=== PATIENT | female | born 1985 | race Caucasian/White ===

== ENCOUNTER 2021-06-20 12:13 | Inpatient (IN) | payer OTHER ==
[~2021-06-20] VITALS: Ht 165.1 cm; Wt 63.0 kg
[2021-06-20] VITALS (8 sets, daily range): BP systolic 81–94; BP diastolic 50–56
[~2021-06-20 12:13] MED LIST: ACET-907 PO; ATOR1TAB19 PO; BASA100I SC; BASA100I SQ; CARA1TAB6 PO; ESCI10TA16 PO; HUMA100I5 SQ; LEVO75TA4 PO; LISI2.5T9 PO; PANT40TA29 PO
[2021-06-20] MEDS ORDERED: NS 1,000 ML IV ONE ×5 (12:20→22:10)
[2021-06-20] MEDS ORDERED: HumuLIN R (REGULAR) INSULIN (NovoLIN R) **100U/ML** PER UNIT IV ONE (12:30)
[2021-06-20 12:35] LABS: VENOUS BASE EXCESS -29.1 (-2.0-2.0); VENOUS HCO3 3.7 MEQ/L (23.0-27.0); VENOUS O2 SATURATION 90.2 % (60.0-80.0); VENOUS PARTIAL PRESSURE CO2 21.8 mmHg (38.0-50.0); VENOUS PH 6.852 UNITS (7.330-7.430); VENOUS STANDARD HCO3 5.1 MEQ/L; VENOUS TOTAL CO2 4.4 MEQ/L (24.0-28.0)
[2021-06-20 12:53] LABS: BASO # 0.1 10^3/uL (0.0-0.2); BASO % 0.4 % (0.0-1.0); EOS % 0.1 % (0.0-3.0); HEMATOCRIT 44.6 % (36.0-47.0); HEMOGLOBIN 12.2 g/dl (12.0-15.5); LYMPH # 1.8 10^3/uL (1.5-5.0); LYMPH % 6.2 % (24.0-44.0); MEAN CORPUSCULAR HEMOGLOBIN 30.7 pg (27.0-33.0); MEAN CORPUSCULAR HGB CONC 27.4 g/dl (32.0-36.5); MEAN CORPUSCULAR VOLUME 112.1 fl (80.0-96.0); MONO % 9.5 % (2.0-8.0); NEUTROPHILS % 80.3 % (36.0-66.0); RED BLOOD COUNT 3.98 10^6/uL (4.00-5.40); WHITE BLOOD COUNT 28.6 10^3/uL (4.0-10.0)
[2021-06-20] MEDS ORDERED: cefTRIAXone SOD 2 GM in D5W MINI-BAG PLUS 50 ML IV ONE (13:05)
[2021-06-20] MEDS ORDERED: NS 640 ML in IV 1 EA IV ONE (13:05)
[2021-06-20 13:11] LABS: OSMOLALITY SERUM 364 MOSM/KG (275-295)
[2021-06-20 13:14] LABS: RSV AMPLIFICATION NEGATIVE (NEGATIVE)
[2021-06-20 13:22] LABS: ACETONE/KETONE > 46.00 MG/DL (<2.81); ALBUMIN 3.5 GM/DL (3.2-5.2); ALT/SGPT 32 U/L (12-78); BILIRUBIN,DIRECT 0.2 MG/DL (0.0-0.2); BILIRUBIN,TOTAL 0.5 MG/DL (0.2-1.0); BLOOD UREA NITROGEN 43 MG/DL (7-18); CALCIUM LEVEL 8.9 MG/DL (8.5-10.1); CARBON DIOXIDE LEVEL 3 MEQ/L (21-32); CHLORIDE LEVEL 81 MEQ/L (98-107); CREATININE FOR GFR 2.84 MG/DL (0.55-1.30); ETHYL ALCOHOL (ETHANOL) < 0.003 % (0.000-0.010); GLOMERULAR FILTRATION RATE 20.4 (>60); LIPASE 341 U/L (73-393); MAGNESIUM LEVEL 3.3 MG/DL (1.8-2.4); SODIUM LEVEL 124 MEQ/L (136-145); TOTAL PROTEIN 6.5 GM/DL (6.4-8.2)
[2021-06-20 13:29] LABS: MONO # 2.7 10^3/uL (0.0-0.8)
[2021-06-20 13:31] LABS: HEMOGLOBIN A1c 9.8 %
[2021-06-20 13:38] LABS: GLUCOSE, FASTING 1382 MG/DL (70-100)
[2021-06-20 13:41] LABS: AMPHETAMINES LEVEL URINE POSITIVE (NEGATIVE); BARBITURATES URINE NEGATIVE (NEGATIVE); BENZODIAZEPINES URINE NEGATIVE (NEGATIVE); CANNABINOIDS URINE NEGATIVE (NEGATIVE); COCAINE METABOLITE URINE NEGATIVE (NEGATIVE); METHADONE URINE NEGATIVE (NEGATIVE); OPIATES URINE NEGATIVE (NEGATIVE); PHENCYCLIDINE URINE NEGATIVE (NEGATIVE)
[2021-06-20] MEDS ORDERED: INSULIN REGULAR IN 0.9 % NACL 100 UNIT in IV 1 EA IV SCH ×4 (13:50→14:30)
[2021-06-20] MEDS ORDERED: INSULIN IV RATE CHANGE DOCUMENTATION ML/HR XX SCH ×2 (13:50→14:30)
[2021-06-20] MEDS ORDERED: SODIUM BICARBONATE 8.4% INJ 50 ML SYRINGE IV STA ×2 (14:16→18:19)
[2021-06-20] MEDS ORDERED: ONDANSETRON 4MG/2ML VIAL As Ordered ONE (14:27)
[2021-06-20] MEDS ORDERED: ONDANSETRON 4MG/2ML VIAL IV ONE (14:30)
[2021-06-20] MEDS ORDERED: SERT25TA21 PO (14:33)
[2021-06-20] MEDS ORDERED: HYDR-3363 PO (14:33)
[2021-06-20] MEDS ORDERED: ONDANSETRON 4MG/2ML VIAL IV PRN (14:50)
[2021-06-20] MEDS ORDERED: COMMENTS (14:59)
[2021-06-20] MEDS ORDERED: PANTOPRAZOLE 40MG VIAL (C9113 PER 1) IV ONE (15:00)
[2021-06-20] MEDS ORDERED: HOME MED LIST COMPLETE! XX SCH (15:05)
[2021-06-20] MEDS: NS 1,000 ML IV SCH ×3 (16:25→23:15)
[2021-06-20] MEDS: INSULIN REGULAR IN 0.9 % NACL 100 UNIT in IV 1 EA IV SCH ×2 (17:01)
[2021-06-20 17:14] LABS: VENOUS BASE EXCESS -23.5 (-2.0-2.0); VENOUS HCO3 5.5 MEQ/L (23.0-27.0); VENOUS O2 SATURATION 94.1 % (60.0-80.0); VENOUS PARTIAL PRESSURE CO2 20.5 mmHg (38.0-50.0); VENOUS PARTIAL PRESSURE O2 84.1 mmHg (30.0-50.0); VENOUS PH 7.043 UNITS (7.330-7.430); VENOUS STANDARD HCO3 7.8 MEQ/L; VENOUS TOTAL CO2 6.1 MEQ/L (24.0-28.0)
[2021-06-20 18:02] LABS: CALCIUM LEVEL 7.2 MG/DL (8.5-10.1); CREATININE FOR GFR 1.98 MG/DL (0.55-1.30); GLOMERULAR FILTRATION RATE 30.9 (>60); PHOSPHORUS LEVEL 4.9 MG/DL (2.5-4.9); POTASSIUM SERUM 4.9 MEQ/L (3.5-5.1)
[2021-06-20 18:37] LABS: ABG HCO3 6.4 MEQ/L (22.0-26.0)
[2021-06-20 18:39] LABS: ABG BASE EXCESS -18.9 (-2.0-2.0); ABG PARTIAL PRESSURE CO2 15.6 mmHg (35.0-45.0); ABG STANDARD HCO3 10.6 MEQ/L (22.0-26.0); ABG TOTAL CO2 6.8 MEQ/L (22.0-29.0); ABG pH (ARTERIAL) 7.228 UNITS (7.350-7.450)
[2021-06-20] MEDS ORDERED: TERCONAZOLE-7 VAGINAL CREAM PV SCH (21:00)
[2021-06-20] MEDS ORDERED: CLOTRIMAZOLE 1% VAG CR 45 GM PV SCH (21:00)
[2021-06-20] MEDS: INSULIN IV RATE CHANGE DOCUMENTATION ML/HR XX SCH ×2 (21:03→22:04)
[2021-06-20 22:41] LABS: VENOUS BASE EXCESS -8.7 (-2.0-2.0); VENOUS HCO3 15.1 MEQ/L (23.0-27.0); VENOUS O2 SATURATION 99.2 % (60.0-80.0); VENOUS PARTIAL PRESSURE CO2 26.7 mmHg (38.0-50.0); VENOUS PARTIAL PRESSURE O2 180.4 mmHg (30.0-50.0); VENOUS STANDARD HCO3 17.5 MEQ/L; VENOUS TOTAL CO2 15.9 MEQ/L (24.0-28.0)
[2021-06-20 23:47] LABS: CALCIUM LEVEL 6.9 MG/DL (8.5-10.1); CREATININE FOR GFR 1.26 MG/DL (0.55-1.30); GLOMERULAR FILTRATION RATE 52.1 (>60); PHOSPHORUS LEVEL 1.3 MG/DL (2.5-4.9)
[2021-06-20] MEDS ORDERED: POTASSIUM CHLORIDE 10% LIQ 20 MEQ/15 ML UDC PO ONE (23:55)
[2021-06-21] VITALS (37 sets, daily range): BP systolic 76–146; BP diastolic 44–85
[2021-06-21] MEDS ORDERED: KCL 20MEQ in NS 1000ML 1,000 ML IV SCH
[2021-06-21] MEDS: KCL 10MEQ/100ML SWI (KRUN) 10 MEQ in IV 1 EA IV SCH ×6 (00:19→17:56)
[2021-06-21 01:28] LABS: CALCIUM LEVEL 7.1 MG/DL (8.5-10.1); CREATININE FOR GFR 1.22 MG/DL (0.55-1.30); POTASSIUM SERUM 3.4 MEQ/L (3.5-5.1)
[2021-06-21] MEDS: INSULIN IV RATE CHANGE DOCUMENTATION ML/HR XX SCH ×7 (01:48→18:33)
[2021-06-21] MEDS: KCL 20MEQ IN D5/NS 1000ML 1,000 ML IV SCH ×5 (01:49→19:42)
[2021-06-21 02:52] LABS: VENOUS HCO3 10.7 MEQ/L (23.0-27.0); VENOUS O2 SATURATION 98.1 % (60.0-80.0); VENOUS PARTIAL PRESSURE CO2 22.2 mmHg (38.0-50.0); VENOUS PARTIAL PRESSURE O2 117.5 mmHg (30.0-50.0); VENOUS PH 7.299 UNITS (7.330-7.430); VENOUS STANDARD HCO3 13.6 MEQ/L; VENOUS TOTAL CO2 11.3 MEQ/L (24.0-28.0)
[2021-06-21] MEDS: INSULIN REGULAR IN 0.9 % NACL 100 UNIT in IV 1 EA IV SCH ×2 (03:05)
[2021-06-21 03:25] LABS: BLOOD UREA NITROGEN 25 MG/DL (7-18); CARBON DIOXIDE LEVEL 12 MEQ/L (21-32); CHLORIDE LEVEL 115 MEQ/L (98-107); CREATININE FOR GFR 0.98 MG/DL (0.55-1.30); GLOMERULAR FILTRATION RATE > 60.0 (>60); GLUCOSE, FASTING 240 MG/DL (70-100); PHOSPHORUS LEVEL 1.6 MG/DL (2.5-4.9); POTASSIUM SERUM 4.3 MEQ/L (3.5-5.1); SODIUM LEVEL 142 MEQ/L (136-145)
[2021-06-21] MEDS ORDERED: NS 1,000 ML IV ONE ×2 (04:35→06:20)
[2021-06-21 06:43] LABS: ABG BASE EXCESS -7.4 (-2.0-2.0); ABG HCO3 16.1 MEQ/L (22.0-26.0); ABG O2 SATURATION 97.9 % (95.0-99.0); ABG PARTIAL PRESSURE CO2 26.5 mmHg (35.0-45.0); ABG PARTIAL PRESSURE O2 104.9 mmHg (75.0-100.0); ABG STANDARD HCO3 18.4 MEQ/L (22.0-26.0); ABG TOTAL CO2 16.9 MEQ/L (22.0-29.0); ABG pH (ARTERIAL) 7.401 UNITS (7.350-7.450)
[2021-06-21 06:56] LABS: VENOUS BASE EXCESS -10.4 (-2.0-2.0); VENOUS HCO3 14.5 MEQ/L (23.0-27.0); VENOUS O2 SATURATION 96.6 % (60.0-80.0); VENOUS PARTIAL PRESSURE CO2 29.1 mmHg (38.0-50.0); VENOUS PARTIAL PRESSURE O2 86.6 mmHg (30.0-50.0); VENOUS PH 7.315 UNITS (7.330-7.430); VENOUS STANDARD HCO3 16.2 MEQ/L; VENOUS TOTAL CO2 15.4 MEQ/L (24.0-28.0)
[2021-06-21 07:33] LABS: BLOOD UREA NITROGEN 20 MG/DL (7-18); CALCIUM LEVEL 7.3 MG/DL (8.5-10.1); CARBON DIOXIDE LEVEL 16 MEQ/L (21-32); CHLORIDE LEVEL 117 MEQ/L (98-107); CREATININE FOR GFR 0.92 MG/DL (0.55-1.30); GLOMERULAR FILTRATION RATE > 60.0 (>60); GLUCOSE, FASTING 109 MG/DL (70-100); PHOSPHORUS LEVEL 1.8 MG/DL (2.5-4.9); POTASSIUM SERUM 3.9 MEQ/L (3.5-5.1); SODIUM LEVEL 142 MEQ/L (136-145)
[2021-06-21 07:43] LABS: BLOOD UREA NITROGEN 21 MG/DL (7-18); CALCIUM LEVEL 7.4 MG/DL (8.5-10.1); CARBON DIOXIDE LEVEL 15 MEQ/L (21-32); CHLORIDE LEVEL 115 MEQ/L (98-107); CREATININE FOR GFR 0.98 MG/DL (0.55-1.30); GLOMERULAR FILTRATION RATE > 60.0 (>60); GLUCOSE, FASTING 162 MG/DL (70-100); POTASSIUM SERUM 4.1 MEQ/L (3.5-5.1); SODIUM LEVEL 142 MEQ/L (136-145)
[2021-06-21] MEDS: LACTOBACILLUS ACIDOPHILUS CAP (BACID) PO SCH (07:54)
[2021-06-21 08:13] LABS: OSMOLALITY SERUM 295 MOSM/KG (275-295)
[2021-06-21] MEDS ORDERED: SODIUM PHOSPHATE INJ 30 MMOL in D5W 500 ML IV ONE (10:00)
[2021-06-21] MEDS ORDERED: VANCOMYCIN HCL 1,000 MG, VIAL MATE ADAPTER 1 EACH in NS 250 ML IV SCH (10:05)
[2021-06-21] MEDS: VANCOMYCIN HCL 750 MG, VIAL MATE ADAPTER 1 EACH in NS 250 ML IV SCH ×2 (11:14→18:14)
[2021-06-21 11:33] LABS: BASO % 0.2 % (0.0-1.0); HEMATOCRIT 31.3 % (36.0-47.0); HEMOGLOBIN 10.4 g/dl (12.0-15.5); LYMPH # 1.6 10^3/uL (1.5-5.0); LYMPH % 8.7 % (24.0-44.0); MEAN CORPUSCULAR HEMOGLOBIN 30.9 pg (27.0-33.0); MEAN CORPUSCULAR HGB CONC 33.2 g/dl (32.0-36.5); MEAN CORPUSCULAR VOLUME 92.9 fl (80.0-96.0); MONO # 1.4 10^3/uL (0.0-0.8); MONO % 7.2 % (2.0-8.0); NEUTROPHILS # 15.7 10^3/uL (1.5-8.5); NEUTROPHILS % 83.4 % (36.0-66.0); PLATELET COUNT, AUTOMATED 249 10^3/uL (150-450); RED BLOOD COUNT 3.37 10^6/uL (4.00-5.40); WHITE BLOOD COUNT 18.8 10^3/uL (4.0-10.0)
[2021-06-21] MEDS ORDERED: VANCOMYCIN HCL 500 MG in D5W MINI-BAG PLUS 100 ML IV ONE (12:00)
[2021-06-21 13:16] LABS: ALBUMIN 2.4 GM/DL (3.2-5.2); ALT/SGPT 27 U/L (12-78); BILIRUBIN,TOTAL 0.2 MG/DL (0.2-1.0); BLOOD UREA NITROGEN 15 MG/DL (7-18); CALCIUM LEVEL 7.4 MG/DL (8.5-10.1); CARBON DIOXIDE LEVEL 12 MEQ/L (21-32); CHLORIDE LEVEL 116 MEQ/L (98-107); CREATININE FOR GFR 0.78 MG/DL (0.55-1.30); GLOMERULAR FILTRATION RATE > 60.0 (>60); GLUCOSE, FASTING 217 MG/DL (70-100); POTASSIUM SERUM 4.2 MEQ/L (3.5-5.1); SODIUM LEVEL 141 MEQ/L (136-145); TOTAL PROTEIN 4.7 GM/DL (6.4-8.2)
[2021-06-21] MEDS: cefTRIAXone SOD 1 GM in D5W MINI-BAG PLUS 50 ML IV SCH (13:45)
[2021-06-21] MEDS: ACETAMINOPHEN TAB 650MG DOSE (2X325MG) PO PRN (13:46)
[2021-06-21] MEDS ORDERED: PANTOPRAZOLE 40MG VIAL (C9113 PER 1) IV SCH (15:00)
[2021-06-21] MEDS ORDERED: FLUCONAZOLE 50MG TABLET PO ONE (15:00)
[2021-06-21 15:28] LABS: BLOOD UREA NITROGEN 11 MG/DL (7-18); CALCIUM LEVEL 6.8 MG/DL (8.5-10.1); CARBON DIOXIDE LEVEL 19 MEQ/L (21-32); CHLORIDE LEVEL 116 MEQ/L (98-107); CREATININE FOR GFR 0.87 MG/DL (0.55-1.30); GLOMERULAR FILTRATION RATE > 60.0 (>60); GLUCOSE, FASTING 176 MG/DL (70-100); POTASSIUM SERUM 3.3 MEQ/L (3.5-5.1); SODIUM LEVEL 145 MEQ/L (136-145)
[2021-06-21] MEDS ORDERED: LEVEMIR (INSULIN DETEMIR) 1 UNITS/0.01ML SC ONE (16:20)
[2021-06-21] MEDS ORDERED: POTASSIUM CHLORIDE 10MEQ SR TABLET PO ONE (16:30)
[2021-06-21] MEDS: HumaLOG INSULIN (NovoLOG) PER UNIT SC SCH (21:00)
[2021-06-21 21:56] LABS: ACETONE/KETONE 9.19 MG/DL (<2.81); BLOOD UREA NITROGEN 8 MG/DL (7-18); CALCIUM LEVEL 7.3 MG/DL (8.5-10.1); CARBON DIOXIDE LEVEL 18 MEQ/L (21-32); CHLORIDE LEVEL 117 MEQ/L (98-107); CREATININE FOR GFR 0.66 MG/DL (0.55-1.30); GLOMERULAR FILTRATION RATE > 60.0 (>60); GLUCOSE, FASTING 128 MG/DL (70-100); POTASSIUM SERUM 3.9 MEQ/L (3.5-5.1); SODIUM LEVEL 142 MEQ/L (136-145)
[2021-06-22] VITALS (9 sets, daily range): BP systolic 101–139; BP diastolic 55–79
[2021-06-22] MEDS: VANCOMYCIN HCL 750 MG, VIAL MATE ADAPTER 1 EACH in NS 250 ML IV SCH ×2 (03:29→12:07)
[2021-06-22 05:51] LABS: BASO % 0.2 % (0.0-1.0); EOS % 0.2 % (0.0-3.0); HEMATOCRIT 29.3 % (36.0-47.0); HEMOGLOBIN 9.9 g/dl (12.0-15.5); LYMPH # 3.2 10^3/uL (1.5-5.0); LYMPH % 25.4 % (24.0-44.0); MEAN CORPUSCULAR HEMOGLOBIN 30.8 pg (27.0-33.0); MEAN CORPUSCULAR HGB CONC 33.8 g/dl (32.0-36.5); MEAN CORPUSCULAR VOLUME 91.3 fl (80.0-96.0); MONO # 0.6 10^3/uL (0.0-0.8); MONO % 4.8 % (2.0-8.0); NEUTROPHILS # 8.7 10^3/uL (1.5-8.5); NEUTROPHILS % 68.8 % (36.0-66.0); PLATELET COUNT, AUTOMATED 207 10^3/uL (150-450); RED BLOOD COUNT 3.21 10^6/uL (4.00-5.40); WHITE BLOOD COUNT 12.6 10^3/uL (4.0-10.0)
[2021-06-22 06:14] LABS: BLOOD UREA NITROGEN 5 MG/DL (7-18); CALCIUM LEVEL 7.5 MG/DL (8.5-10.1); CARBON DIOXIDE LEVEL 20 MEQ/L (21-32); CHLORIDE LEVEL 118 MEQ/L (98-107); CREATININE FOR GFR 0.52 MG/DL (0.55-1.30); GLOMERULAR FILTRATION RATE > 60.0 (>60); GLUCOSE, FASTING 71 MG/DL (70-100); MAGNESIUM LEVEL 1.6 MG/DL (1.8-2.4); PHOSPHORUS LEVEL 1.6 MG/DL (2.5-4.9); POTASSIUM SERUM 3.4 MEQ/L (3.5-5.1); SODIUM LEVEL 145 MEQ/L (136-145)
[2021-06-22] MEDS: KCL 20MEQ IN D5/NS 1000ML 1,000 ML IV SCH (07:21)
[2021-06-22] MEDS: HumaLOG INSULIN (NovoLOG) PER UNIT SC SCH ×4 (07:30→20:04)
[2021-06-22] MEDS ORDERED: POTASSIUM CHLORIDE 10MEQ SR TABLET PO ONE (08:00)
[2021-06-22] MEDS ORDERED: K-PHOS ORIGINAL (POT.ACID PHOSPHATE) 500MG TAB PO SCH (09:00)
[2021-06-22] MEDS: LACTOBACILLUS ACIDOPHILUS CAP (BACID) PO SCH (09:29)
[2021-06-22] MEDS: ENOXAPARIN 40MG/0.4ML SYRINGE (J1650 PER 10MG) SC SCH (09:29)
[2021-06-22] MEDS: MAG SULF 1GM/100ML (MAG RUN) 1 GM in IV 1 EA IV SCH ×2 (09:31→14:16)
[2021-06-22] MEDS ORDERED: SODIUM PHOSPHATE INJ 30 MMOL in D5W 500 ML IV ONE (11:00)
[2021-06-22] MEDS: GI COCKTAIL 50ML BTL(HYOSCYAMINE/MAALOX/LIDOCAINE VISCOUS)(1:3:1) PO PRN (13:08)
[2021-06-22] MEDS: PANTOPRAZOLE 40MG VIAL (C9113 PER 1) IV SCH (13:08)
[2021-06-22] MEDS ORDERED: MAG SULF 1GM/100ML (MAG RUN) 1 GM in IV 1 EA IV ONE (14:10)
[2021-06-22] MEDS: cefTRIAXone SOD 1 GM in D5W MINI-BAG PLUS 50 ML IV SCH (14:43)
[2021-06-22 16:32] LABS: BLOOD UREA NITROGEN 3 MG/DL (7-18); CALCIUM LEVEL 7.7 MG/DL (8.5-10.1); CARBON DIOXIDE LEVEL 20 MEQ/L (21-32); CHLORIDE LEVEL 116 MEQ/L (98-107); CREATININE FOR GFR 0.65 MG/DL (0.55-1.30); GLOMERULAR FILTRATION RATE > 60.0 (>60); GLUCOSE, FASTING 156 MG/DL (70-100); POTASSIUM SERUM 3.5 MEQ/L (3.5-5.1); SODIUM LEVEL 144 MEQ/L (136-145)
[2021-06-22] MEDS ORDERED: MORPHINE 2 MG/ML 1ML VIAL (J2270) IV ONE (19:00)
[2021-06-22] MEDS: SUCRALFATE SUSP 1GM/10ML UD PO SCH (20:10)
[2021-06-23] MEDS: SUCRALFATE SUSP 1GM/10ML UD PO SCH ×4 (00:24→18:12)
[2021-06-23] MEDS: PANTOPRAZOLE 40MG VIAL (C9113 PER 1) IV SCH ×2 (00:24→11:49)
[2021-06-23 06:00] VITALS: BP 110/78
[2021-06-23 06:49] LABS: BASO % 0.3 % (0.0-1.0); EOS # 0.1 10^3/uL (0.0-0.5); EOS % 0.7 % (0.0-3.0); HEMATOCRIT 31.4 % (36.0-47.0); HEMOGLOBIN 10.3 g/dl (12.0-15.5); LYMPH # 1.7 10^3/uL (1.5-5.0); LYMPH % 23.8 % (24.0-44.0); MEAN CORPUSCULAR HEMOGLOBIN 30.5 pg (27.0-33.0); MEAN CORPUSCULAR HGB CONC 32.8 g/dl (32.0-36.5); MEAN CORPUSCULAR VOLUME 92.9 fl (80.0-96.0); MONO # 0.4 10^3/uL (0.0-0.8); MONO % 5.7 % (2.0-8.0); NEUTROPHILS % 69.1 % (36.0-66.0); PLATELET COUNT, AUTOMATED 165 10^3/uL (150-450); RED BLOOD COUNT 3.38 10^6/uL (4.00-5.40); WHITE BLOOD COUNT 7.2 10^3/uL (4.0-10.0)
[2021-06-23 07:17] LABS: BLOOD UREA NITROGEN 5 MG/DL (7-18); CALCIUM LEVEL 7.8 MG/DL (8.5-10.1); CARBON DIOXIDE LEVEL 21 MEQ/L (21-32); CHLORIDE LEVEL 111 MEQ/L (98-107); GLOMERULAR FILTRATION RATE > 60.0 (>60); GLUCOSE, FASTING 369 MG/DL (70-100); MAGNESIUM LEVEL 2.6 MG/DL (1.8-2.4); PHOSPHORUS LEVEL 2.1 MG/DL (2.5-4.9); POTASSIUM SERUM 4.3 MEQ/L (3.5-5.1); SODIUM LEVEL 141 MEQ/L (136-145)
[2021-06-23] MEDS: LACTOBACILLUS ACIDOPHILUS CAP (BACID) PO SCH (08:47)
[2021-06-23] MEDS: ENOXAPARIN 40MG/0.4ML SYRINGE (J1650 PER 10MG) SC SCH (08:48)
[2021-06-23] MEDS: HumaLOG INSULIN (NovoLOG) PER UNIT SC SCH ×4 (08:50→21:00)
[2021-06-23] MEDS: LEVEMIR (INSULIN DETEMIR) 1 UNITS/0.01ML SC SCH ×2 (09:25→21:41)
[2021-06-23] MEDS ORDERED: SODIUM PHOSPHATE INJ 30 MMOL in D5W 500 ML IV ONE (11:00)
[2021-06-23] MEDS: LEVOTHYROXINE 75MCG TABLET (0.075MG) PO SCH (11:30)
[2021-06-23] MEDS: ATORVASTATIN 10 MG TAB PO SCH (11:31)
[2021-06-23] MEDS: SERTRALINE HCL 25 MG TABLET PO SCH (11:32)
[2021-06-23] MEDS: ACETAMINOPHEN TAB 650MG DOSE (2X325MG) PO PRN (11:35)
[2021-06-23] MEDS: GI COCKTAIL 50ML BTL(HYOSCYAMINE/MAALOX/LIDOCAINE VISCOUS)(1:3:1) PO PRN (12:36)
[2021-06-23 14:00] VITALS: BP 107/76
[2021-06-23 22:00] VITALS: BP 111/76
[2021-06-24] MEDS: PANTOPRAZOLE 40MG VIAL (C9113 PER 1) IV SCH ×2 (00:09→11:58)
[2021-06-24] MEDS: SUCRALFATE SUSP 1GM/10ML UD PO SCH ×2 (00:09→05:57)
[2021-06-24] MEDS ORDERED: GLUCAGON INJ 1MG VIAL SC PRN (03:15)
[2021-06-24] MEDS ORDERED: DEXTROSE 50% 50 ML SYRINGE IV PRN (03:15)
[2021-06-24] MEDS: GLUCOSE 4GM CHEW TABLET PO PRN ×2 (03:33→04:16)
[2021-06-24] MEDS: LEVOTHYROXINE 75MCG TABLET (0.075MG) PO SCH (05:57)
[2021-06-24 06:00] VITALS: BP 115/78
[2021-06-24 06:01] LABS: BASO % 0.3 % (0.0-1.0); EOS # 0.1 10^3/uL (0.0-0.5); HEMATOCRIT 30.6 % (36.0-47.0); LYMPH # 1.6 10^3/uL (1.5-5.0); LYMPH % 25.2 % (24.0-44.0); MEAN CORPUSCULAR HEMOGLOBIN 30.2 pg (27.0-33.0); MEAN CORPUSCULAR HGB CONC 32.7 g/dl (32.0-36.5); MEAN CORPUSCULAR VOLUME 92.4 fl (80.0-96.0); MONO # 0.4 10^3/uL (0.0-0.8); MONO % 6.8 % (2.0-8.0); NEUTROPHILS # 4.2 10^3/uL (1.5-8.5); NEUTROPHILS % 66.4 % (36.0-66.0); PLATELET COUNT, AUTOMATED 169 10^3/uL (150-450); RED BLOOD COUNT 3.31 10^6/uL (4.00-5.40); WHITE BLOOD COUNT 6.3 10^3/uL (4.0-10.0)
[2021-06-24 06:24] LABS: BLOOD UREA NITROGEN 1 MG/DL (7-18); CALCIUM LEVEL 7.9 MG/DL (8.5-10.1); CARBON DIOXIDE LEVEL 27 MEQ/L (21-32); CHLORIDE LEVEL 111 MEQ/L (98-107); CREATININE FOR GFR 0.46 MG/DL (0.55-1.30); GLOMERULAR FILTRATION RATE > 60.0 (>60); GLUCOSE, FASTING 119 MG/DL (70-100); POTASSIUM SERUM 3.2 MEQ/L (3.5-5.1); SODIUM LEVEL 147 MEQ/L (136-145)
[2021-06-24] MEDS: HumaLOG INSULIN (NovoLOG) PER UNIT SC SCH (07:30)
[2021-06-24] MEDS: KCL 10MEQ/100ML SWI (KRUN) 10 MEQ in IV 1 EA IV SCH ×2 (08:10→09:10)
[2021-06-24] MEDS: LEVEMIR (INSULIN DETEMIR) 1 UNITS/0.01ML SC SCH (09:00)
[2021-06-24] MEDS: ENOXAPARIN 40MG/0.4ML SYRINGE (J1650 PER 10MG) SC SCH (09:06)
[2021-06-24] MEDS: LACTOBACILLUS ACIDOPHILUS CAP (BACID) PO SCH (09:06)
[2021-06-24] MEDS: SERTRALINE HCL 25 MG TABLET PO SCH (09:06)
[2021-06-24] MEDS: ATORVASTATIN 10 MG TAB PO SCH (09:06)
[2021-06-24] MEDS ORDERED: PANT40TA29 PO (09:21)
[2021-06-24] MEDS ORDERED: SUCR1TA PO (09:21)
[2021-06-24] MEDS ORDERED: POTASSIUM CHLORIDE 10MEQ SR TABLET PO ONE (10:30)
[2021-06-25] MEDS ORDERED: ADME100I2 SC (12:00)
[2021-06-25] MEDS ORDERED: PANT-23 PO (14:30)
[2021-06-25] MEDS ORDERED: SUCR1TAB56 PO (14:30)
== END 2021-06-24 12:16 | disposition home or self-care (01) | DRG 420 ==
LOC: M ED 12:13 → M ED INP 15:58 → ENRESERV 16:20 → M PCU 17:55 → M MSPAV 06-22 22:37
PROVIDERS: ADMIT Internal Medicine Nephrology; ATTEND Internal Medicine Nephrology
DX: E10.11 Type 1 diabetes mellitus with ketoacidosis with coma (principal); N17.9 Acute kidney failure, unspecified; I95.9 Hypotension, unspecified; E83.39 Other disorders of phosphorus metabolism; E83.42 Hypomagnesemia; E03.9 Hypothyroidism, unspecified; K29.60 Other gastritis without bleeding; Z79.4 Long term (current) use of insulin; Z79.899 Other long term (current) drug therapy; Z20.822 Contact with and (suspected) exposure to COVID-19; D72.829 Elevated white blood cell count, unspecified; E87.6 Hypokalemia; E86.0 Dehydration

== ENCOUNTER 2021-06-25 11:40 | Inpatient (IN) | payer OTHER ==
[~2021-06-25] VITALS: Ht 157.5 cm; Wt 64.3 kg
[2021-06-25] MEDS: PANTOPRAZOLE 40MG VIAL (C9113 PER 1) IV SCH ×2 (09:00→20:39)
[~2021-06-25 11:40] MED LIST changes: +COMMENTS; +HYDR-3363 PO; +SERT25TA21 PO; +SUCR1TA PO
[2021-06-25] MEDS ORDERED: ADME100I2 SC (12:00)
[2021-06-25] MEDS ORDERED: NS 1,000 ML IV ONE (12:35)
[2021-06-25 13:09] LABS: VENOUS BASE EXCESS -12.2 (-2.0-2.0); VENOUS HCO3 13.1 MEQ/L (23.0-27.0); VENOUS O2 SATURATION 89.9 % (60.0-80.0); VENOUS PARTIAL PRESSURE CO2 28.6 mmHg (38.0-50.0); VENOUS PARTIAL PRESSURE O2 63.1 mmHg (30.0-50.0); VENOUS PH 7.278 UNITS (7.330-7.430); VENOUS STANDARD HCO3 14.9 MEQ/L
[2021-06-25] MEDS ORDERED: NS 740 ML in IV 1 EA IV ONE (13:10)
[2021-06-25 13:12] LABS: BASO % 0.2 % (0.0-1.0); LYMPH # 0.7 10^3/uL (1.5-5.0); LYMPH % 4.3 % (24.0-44.0); MEAN CORPUSCULAR HEMOGLOBIN 30.4 pg (27.0-33.0); MEAN CORPUSCULAR HGB CONC 31.8 g/dl (32.0-36.5); MEAN CORPUSCULAR VOLUME 95.6 fl (80.0-96.0); MONO # 0.8 10^3/uL (0.0-0.8); NEUTROPHILS # 15.2 10^3/uL (1.5-8.5); NEUTROPHILS % 89.8 % (36.0-66.0); PLATELET COUNT, AUTOMATED 248 10^3/uL (150-450); RED BLOOD COUNT 4.08 10^6/uL (4.00-5.40)
[2021-06-25 13:15] LABS: HEMOGLOBIN 12.4 g/dl (12.0-15.5)
[2021-06-25] MEDS ORDERED: HumuLIN R (REGULAR) INSULIN (NovoLIN R) **100U/ML** PER UNIT IV ONE (13:15)
[2021-06-25 13:35] LABS: OSMOLALITY SERUM 313 MOSM/KG (275-295)
[2021-06-25 13:48] LABS: ACETONE/KETONE > 46.00 MG/DL (<2.81); ALBUMIN 3.3 GM/DL (3.2-5.2); ALT/SGPT 84 U/L (12-78); BILIRUBIN,DIRECT 0.2 MG/DL (0.0-0.2); BILIRUBIN,TOTAL 0.7 MG/DL (0.2-1.0); LIPASE 58 U/L (73-393); MAGNESIUM LEVEL 2.3 MG/DL (1.8-2.4); PHOSPHORUS LEVEL 4.5 MG/DL (2.5-4.9); TOTAL PROTEIN 6.4 GM/DL (6.4-8.2)
[2021-06-25] MEDS ORDERED: METOCLOPRAMIDE INJ 10MG/2ML VIAL (J2765 PER 1) IV ONE (14:00)
[2021-06-25] MEDS ORDERED: PANT-23 PO (14:30)
[2021-06-25] MEDS ORDERED: SUCR1TAB56 PO (14:30)
[2021-06-25] MEDS ORDERED: HOME MED LIST COMPLETE! XX SCH (14:35)
[2021-06-25] MEDS: NS 1,000 ML IV SCH ×2 (15:00→18:17)
[2021-06-25 15:12] LABS: RSV AMPLIFICATION NEGATIVE (NEGATIVE)
[2021-06-25] MEDS ORDERED: INSULIN REGULAR IN 0.9 % NACL 100 UNIT in IV 1 EA IV SCH ×2 (15:30)
[2021-06-25 15:50] VITALS: BP 87/52
[2021-06-25] MEDS: INSULIN IV RATE CHANGE DOCUMENTATION ML/HR XX SCH ×6 (16:10→22:42)
[2021-06-25] MEDS: SUCRALFATE 1 GM TAB PO SCH ×2 (17:00→20:40)
[2021-06-25 18:00] VITALS: BP 89/51
[2021-06-25 19:28] VITALS: BP 91/53
[2021-06-25 19:48] LABS: OSMOLALITY SERUM 291 MOSM/KG (275-295)
[2021-06-25 19:56] LABS: BLOOD UREA NITROGEN 9 MG/DL (7-18); CALCIUM LEVEL 8.1 MG/DL (8.5-10.1); CARBON DIOXIDE LEVEL 14 MEQ/L (21-32); CHLORIDE LEVEL 112 MEQ/L (98-107); CREATININE FOR GFR 0.61 MG/DL (0.55-1.30); GLOMERULAR FILTRATION RATE > 60.0 (>60); GLUCOSE, FASTING 203 MG/DL (70-100); PHOSPHORUS LEVEL 1.9 MG/DL (2.5-4.9); SODIUM LEVEL 141 MEQ/L (136-145)
[2021-06-25] MEDS ORDERED: POTASSIUM PHOSPHATE INJ 30 MMOL in D5W 500 ML IV ONE (20:15)
[2021-06-25] MEDS ORDERED: KCL 20MEQ in NS 1000ML 1,000 ML IV SCH (20:30)
[2021-06-25] MEDS: ENOXAPARIN 40MG/0.4ML SYRINGE (J1650 PER 10MG) SC SCH (20:39)
[2021-06-25] MEDS: hydrOXYzine 25 MG TAB PO SCH (20:39)
[2021-06-25 21:05] LABS: ACETONE/KETONE > 46.00 MG/DL (<2.81)
[2021-06-25] MEDS ORDERED: KETOROLAC 30 MG/ML 1ML VIAL IV ONE (22:00)
[2021-06-25] MEDS ORDERED: KCL 20MEQ IN D5/NS 1000ML 1,000 ML IV SCH (22:00)
[2021-06-25] MEDS ORDERED: POTASSIUM PHOSPHATE INJ 20 MMOL in D5W 250 ML IV ONE (22:00)
[2021-06-25 22:05] LABS: VENOUS BASE EXCESS -11.1 (-2.0-2.0); VENOUS HCO3 13.3 MEQ/L (23.0-27.0); VENOUS O2 SATURATION 97.5 % (60.0-80.0); VENOUS PARTIAL PRESSURE CO2 25.8 mmHg (38.0-50.0); VENOUS PARTIAL PRESSURE O2 102.9 mmHg (30.0-50.0); VENOUS PH 7.331 UNITS (7.330-7.430); VENOUS STANDARD HCO3 15.7 MEQ/L; VENOUS TOTAL CO2 14.1 MEQ/L (24.0-28.0)
[2021-06-25 22:25] VITALS: BP 84/47
[2021-06-25 23:55] VITALS: BP 85/52
[2021-06-26] VITALS (7 sets, daily range): BP systolic 86–138; BP diastolic 52–74
[2021-06-26] MEDS: INSULIN IV RATE CHANGE DOCUMENTATION ML/HR XX SCH ×12 (00:01→21:00)
[2021-06-26 00:30] LABS: VENOUS BASE EXCESS -13.9 (-2.0-2.0); VENOUS HCO3 12.4 MEQ/L (23.0-27.0); VENOUS O2 SATURATION 73.1 % (60.0-80.0); VENOUS PARTIAL PRESSURE CO2 30.2 mmHg (38.0-50.0); VENOUS PARTIAL PRESSURE O2 40.3 mmHg (30.0-50.0); VENOUS STANDARD HCO3 13.3 MEQ/L; VENOUS TOTAL CO2 13.3 MEQ/L (24.0-28.0)
[2021-06-26] MEDS ORDERED: INSULIN REGULAR IN 0.9 % NACL 100 UNIT in IV 1 EA IV SCH ×2 (00:43)
[2021-06-26 00:52] LABS: ACETONE/KETONE > 46.00 MG/DL (<2.81); BLOOD UREA NITROGEN 7 MG/DL (7-18); CALCIUM LEVEL 7.6 MG/DL (8.5-10.1); CARBON DIOXIDE LEVEL 14 MEQ/L (21-32); CHLORIDE LEVEL 110 MEQ/L (98-107); CREATININE FOR GFR 0.55 MG/DL (0.55-1.30); GLOMERULAR FILTRATION RATE > 60.0 (>60); GLUCOSE, FASTING 297 MG/DL (70-100); POTASSIUM SERUM 4.8 MEQ/L (3.5-5.1); SODIUM LEVEL 139 MEQ/L (136-145)
[2021-06-26] MEDS ORDERED: KCL 20MEQ in NS 1000ML 1,000 ML IV SCH (01:15)
[2021-06-26] MEDS: KCL 20MEQ IN D5/NS 1000ML 1,000 ML IV SCH ×4 (03:57→18:35)
[2021-06-26] MEDS: LEVOTHYROXINE 75MCG TABLET (0.075MG) PO SCH (06:00)
[2021-06-26 07:18] LABS: VENOUS BASE EXCESS -10.1 (-2.0-2.0); VENOUS HCO3 14.7 MEQ/L (23.0-27.0); VENOUS O2 SATURATION 98.3 % (60.0-80.0); VENOUS PARTIAL PRESSURE O2 139.5 mmHg (30.0-50.0); VENOUS PH 7.323 UNITS (7.330-7.430); VENOUS STANDARD HCO3 16.3 MEQ/L; VENOUS TOTAL CO2 15.6 MEQ/L (24.0-28.0)
[2021-06-26 07:26] LABS: BASO % 0.3 % (0.0-1.0); EOS # 0.1 10^3/uL (0.0-0.5); EOS % 1.5 % (0.0-3.0); LYMPH # 2.9 10^3/uL (1.5-5.0); LYMPH % 33.8 % (24.0-44.0); MEAN CORPUSCULAR HEMOGLOBIN 30.6 pg (27.0-33.0); MEAN CORPUSCULAR HGB CONC 31.8 g/dl (32.0-36.5); MEAN CORPUSCULAR VOLUME 96.2 fl (80.0-96.0); MONO # 0.7 10^3/uL (0.0-0.8); MONO % 7.6 % (2.0-8.0); NEUTROPHILS # 4.9 10^3/uL (1.5-8.5); NEUTROPHILS % 56.1 % (36.0-66.0); PLATELET COUNT, AUTOMATED 240 10^3/uL (150-450); RED BLOOD COUNT 2.91 10^6/uL (4.00-5.40); WHITE BLOOD COUNT 8.7 10^3/uL (4.0-10.0)
[2021-06-26 07:37] LABS: HEMOGLOBIN 8.9 g/dl (12.0-15.5)
[2021-06-26 08:00] LABS: OSMOLALITY SERUM 293 MOSM/KG (275-295)
[2021-06-26 08:11] LABS: ACETONE/KETONE > 46.00 MG/DL (<2.81); BLOOD UREA NITROGEN 6 MG/DL (7-18); CALCIUM LEVEL 7.3 MG/DL (8.5-10.1); CARBON DIOXIDE LEVEL 15 MEQ/L (21-32); CHLORIDE LEVEL 113 MEQ/L (98-107); CREATININE FOR GFR 0.53 MG/DL (0.55-1.30); GLOMERULAR FILTRATION RATE > 60.0 (>60); GLUCOSE, FASTING 227 MG/DL (70-100); PHOSPHORUS LEVEL 2.3 MG/DL (2.5-4.9); SODIUM LEVEL 140 MEQ/L (136-145)
[2021-06-26] MEDS ORDERED: LEVEMIR (INSULIN DETEMIR) 1 UNITS/0.01ML SC SCH ×2 (09:00→21:00)
[2021-06-26] MEDS: PANTOPRAZOLE 40MG VIAL (C9113 PER 1) IV SCH ×2 (09:21→21:06)
[2021-06-26] MEDS ORDERED: POTASSIUM PHOSPHATE INJ 30 MMOL in D5W 500 ML IV ONE (10:00)
[2021-06-26 10:39] LABS: BLOOD UREA NITROGEN 5 MG/DL (7-18); CALCIUM LEVEL 7.5 MG/DL (8.5-10.1); CARBON DIOXIDE LEVEL 19 MEQ/L (21-32); CHLORIDE LEVEL 115 MEQ/L (98-107); CREATININE FOR GFR 0.52 MG/DL (0.55-1.30); GLOMERULAR FILTRATION RATE > 60.0 (>60); GLUCOSE, FASTING 180 MG/DL (70-100); POTASSIUM SERUM 3.9 MEQ/L (3.5-5.1); SODIUM LEVEL 142 MEQ/L (136-145)
[2021-06-26] MEDS: SERTRALINE HCL 25 MG TABLET PO SCH (11:54)
[2021-06-26] MEDS: ATORVASTATIN 10 MG TAB PO SCH (11:55)
[2021-06-26] MEDS: SUCRALFATE 1 GM TAB PO SCH ×4 (11:55→21:06)
[2021-06-26] MEDS: INSULIN REGULAR IN 0.9 % NACL 100 UNIT in IV 1 EA IV SCH ×4 (15:30→18:28)
[2021-06-26] MEDS: ACETAMINOPHEN TAB 650MG DOSE (2X325MG) PO PRN (15:40)
[2021-06-26 17:21] LABS: BLOOD UREA NITROGEN 4 MG/DL (7-18); CALCIUM LEVEL 7.7 MG/DL (8.5-10.1); CARBON DIOXIDE LEVEL 21 MEQ/L (21-32); CHLORIDE LEVEL 111 MEQ/L (98-107); CREATININE FOR GFR 0.62 MG/DL (0.55-1.30); GLOMERULAR FILTRATION RATE > 60.0 (>60); GLUCOSE, FASTING 182 MG/DL (70-100); MAGNESIUM LEVEL 1.9 MG/DL (1.8-2.4); PHOSPHORUS LEVEL 3.4 MG/DL (2.5-4.9); POTASSIUM SERUM 4.3 MEQ/L (3.5-5.1); SODIUM LEVEL 142 MEQ/L (136-145)
[2021-06-26] MEDS: hydrOXYzine 25 MG TAB PO SCH (21:06)
[2021-06-26] MEDS: ENOXAPARIN 40MG/0.4ML SYRINGE (J1650 PER 10MG) SC SCH (21:07)
[2021-06-26 21:33] LABS: BLOOD UREA NITROGEN 2 MG/DL (7-18); CALCIUM LEVEL 7.8 MG/DL (8.5-10.1); CARBON DIOXIDE LEVEL 24 MEQ/L (21-32); CHLORIDE LEVEL 113 MEQ/L (98-107); CREATININE FOR GFR 0.54 MG/DL (0.55-1.30); GLOMERULAR FILTRATION RATE > 60.0 (>60); GLUCOSE, FASTING 188 MG/DL (70-100); MAGNESIUM LEVEL 1.9 MG/DL (1.8-2.4); PHOSPHORUS LEVEL 2.2 MG/DL (2.5-4.9); SODIUM LEVEL 142 MEQ/L (136-145)
[2021-06-27] VITALS: BP 119/79
[2021-06-27] MEDS: KCL 20MEQ IN D5/NS 1000ML 1,000 ML IV SCH (00:02)
[2021-06-27] MEDS: ACETAMINOPHEN TAB 650MG DOSE (2X325MG) PO PRN (00:52)
[2021-06-27 04:00] VITALS: BP 114/74
[2021-06-27] MEDS ORDERED: GLUCAGON INJ 1MG VIAL SC PRN (04:15)
[2021-06-27] MEDS ORDERED: DEXTROSE 50% 50 ML SYRINGE IV PRN (04:15)
[2021-06-27] MEDS ORDERED: GLUCOSE 4GM CHEW TABLET PO PRN (04:15)
[2021-06-27] MEDS: LEVOTHYROXINE 75MCG TABLET (0.075MG) PO SCH (05:45)
[2021-06-27 05:58] LABS: BASO % 0.4 % (0.0-1.0); EOS # 0.2 10^3/uL (0.0-0.5); EOS % 2.6 % (0.0-3.0); HEMATOCRIT 27.7 % (36.0-47.0); HEMOGLOBIN 9.1 g/dl (12.0-15.5); LYMPH % 38.8 % (24.0-44.0); MEAN CORPUSCULAR HEMOGLOBIN 30.6 pg (27.0-33.0); MEAN CORPUSCULAR HGB CONC 32.9 g/dl (32.0-36.5); MEAN CORPUSCULAR VOLUME 93.3 fl (80.0-96.0); MONO # 0.7 10^3/uL (0.0-0.8); MONO % 8.9 % (2.0-8.0); NEUTROPHILS # 3.7 10^3/uL (1.5-8.5); NEUTROPHILS % 48.6 % (36.0-66.0); PLATELET COUNT, AUTOMATED 256 10^3/uL (150-450); RED BLOOD COUNT 2.97 10^6/uL (4.00-5.40); WHITE BLOOD COUNT 7.7 10^3/uL (4.0-10.0)
[2021-06-27 06:26] LABS: BLOOD UREA NITROGEN 1 MG/DL (7-18); CALCIUM LEVEL 7.9 MG/DL (8.5-10.1); CARBON DIOXIDE LEVEL 24 MEQ/L (21-32); CHLORIDE LEVEL 115 MEQ/L (98-107); CREATININE FOR GFR 0.39 MG/DL (0.55-1.30); GLOMERULAR FILTRATION RATE > 60.0 (>60); GLUCOSE, FASTING 103 MG/DL (70-100); MAGNESIUM LEVEL 1.9 MG/DL (1.8-2.4); POTASSIUM SERUM 3.4 MEQ/L (3.5-5.1); SODIUM LEVEL 144 MEQ/L (136-145)
[2021-06-27] MEDS ORDERED: POTASSIUM CHLORIDE 10MEQ SR TABLET PO ONE (07:40)
[2021-06-27] MEDS ORDERED: LEVEMIR (INSULIN DETEMIR) 1 UNITS/0.01ML SC ONE (07:45)
[2021-06-27 08:00] VITALS: BP 113/64
[2021-06-27] MEDS: HumaLOG INSULIN (NovoLOG) PER UNIT SC SCH ×3 (08:39→16:59)
[2021-06-27] MEDS: SERTRALINE HCL 25 MG TABLET PO SCH (08:39)
[2021-06-27] MEDS: ATORVASTATIN 10 MG TAB PO SCH (08:39)
[2021-06-27] MEDS: SUCRALFATE 1 GM TAB PO SCH ×4 (08:40→21:16)
[2021-06-27] MEDS: PANTOPRAZOLE 40MG TAB (PROTONIX) PO SCH ×2 (08:40→21:16)
[2021-06-27 15:20] VITALS: BP 138/84
[2021-06-27] MEDS ORDERED: HumaLOG INSULIN (NovoLOG) PER UNIT SC SCH (21:00)
[2021-06-27] MEDS ORDERED: LEVEMIR (INSULIN DETEMIR) 1 UNITS/0.01ML SC SCH ×2 (21:00)
[2021-06-27 21:15] VITALS: BP 140/71
[2021-06-27] MEDS: hydrOXYzine 25 MG TAB PO SCH (21:16)
[2021-06-27] MEDS: ENOXAPARIN 40MG/0.4ML SYRINGE (J1650 PER 10MG) SC SCH (21:17)
[2021-06-28] MEDS: LEVOTHYROXINE 75MCG TABLET (0.075MG) PO SCH (05:02)
[2021-06-28 06:00] LABS: BASO % 0.3 % (0.0-1.0); EOS # 0.1 10^3/uL (0.0-0.5); EOS % 1.4 % (0.0-3.0); HEMATOCRIT 31.5 % (36.0-47.0); HEMOGLOBIN 10.4 g/dl (12.0-15.5); LYMPH # 1.7 10^3/uL (1.5-5.0); LYMPH % 24.2 % (24.0-44.0); MEAN CORPUSCULAR HEMOGLOBIN 30.7 pg (27.0-33.0); MEAN CORPUSCULAR VOLUME 92.9 fl (80.0-96.0); MONO # 0.8 10^3/uL (0.0-0.8); MONO % 11.8 % (2.0-8.0); NEUTROPHILS # 4.3 10^3/uL (1.5-8.5); NEUTROPHILS % 61.4 % (36.0-66.0); PLATELET COUNT, AUTOMATED 287 10^3/uL (150-450); RED BLOOD COUNT 3.39 10^6/uL (4.00-5.40)
[2021-06-28 06:09] VITALS: BP 129/72
[2021-06-28 06:11] LABS: BLOOD UREA NITROGEN 3 MG/DL (7-18); CALCIUM LEVEL 8.6 MG/DL (8.5-10.1); CARBON DIOXIDE LEVEL 31 MEQ/L (21-32); CHLORIDE LEVEL 107 MEQ/L (98-107); CREATININE FOR GFR 0.47 MG/DL (0.55-1.30); GLOMERULAR FILTRATION RATE > 60.0 (>60); GLUCOSE, FASTING 113 MG/DL (70-100); MAGNESIUM LEVEL 1.8 MG/DL (1.8-2.4); PHOSPHORUS LEVEL 3.2 MG/DL (2.5-4.9); POTASSIUM SERUM 3.8 MEQ/L (3.5-5.1); SODIUM LEVEL 142 MEQ/L (136-145)
[2021-06-28] MEDS: SUCRALFATE 1 GM TAB PO SCH (08:35)
[2021-06-28] MEDS: ATORVASTATIN 10 MG TAB PO SCH (08:35)
[2021-06-28] MEDS: PANTOPRAZOLE 40MG TAB (PROTONIX) PO SCH (08:35)
[2021-06-28] MEDS: SERTRALINE HCL 25 MG TABLET PO SCH (08:35)
[2021-06-28] MEDS: HumaLOG INSULIN (NovoLOG) PER UNIT SC SCH (08:36)
[2021-06-28] MEDS: ACETAMINOPHEN TAB 650MG DOSE (2X325MG) PO PRN (08:36)
[2022-06-26] MEDS ORDERED: LEVEMIR (INSULIN DETEMIR) 1 UNITS/0.01ML SC SCH (21:00)
== END 2021-06-28 12:30 | disposition home health service (06) | DRG 420 ==
LOC: M ED 11:40 → M ED INP 13:49 → M PCU 15:30 → M MS5PR 06-27 15:00 → ENRESERV 06-29 14:45
PROVIDERS: ADMIT Internal Medicine; ATTEND Internal Medicine
DX: E10.10 Type 1 diabetes mellitus with ketoacidosis without coma (principal); F32.A Depression, unspecified; E03.9 Hypothyroidism, unspecified; K29.70 Gastritis, unspecified, without bleeding; F41.9 Anxiety disorder, unspecified; E78.5 Hyperlipidemia, unspecified; Z87.891 Personal history of nicotine dependence; Z91.14 Patient's other noncompliance with medication regimen; Z79.4 Long term (current) use of insulin; Z79.899 Other long term (current) drug therapy; E86.0 Dehydration

== ENCOUNTER 2021-08-30 16:24 | Inpatient (IN) | payer OTHER ==
[~2021-08-30] VITALS: Ht 157.5 cm; Wt 134.6 kg
[~2021-08-30 16:24] MED LIST changes: +ADME100I2 SC; +PANT-23 PO; +SUCR1TAB56 PO
[2021-08-30] MEDS ORDERED: ONDANSETRON 4MG/2ML VIAL IV ONE (17:30)
[2021-08-30] MEDS ORDERED: NS 1,000 ML IV ONE (17:30)
[2021-08-30 18:41] LABS: VENOUS BASE EXCESS -20.1 (-2.0-2.0); VENOUS HCO3 7.6 MEQ/L (23.0-27.0); VENOUS PARTIAL PRESSURE CO2 23.8 mmHg (38.0-50.0); VENOUS PARTIAL PRESSURE O2 117.2 mmHg (30.0-50.0); VENOUS TOTAL CO2 8.3 MEQ/L (24.0-28.0)
[2021-08-30 18:46] LABS: BASO % 0.3 % (0.0-1.0); EOS % 0.1 % (0.0-3.0); HEMATOCRIT 41.3 % (36.0-47.0); HEMOGLOBIN 12.7 g/dl (12.0-15.5); LYMPH # 0.8 10^3/uL (1.5-5.0); LYMPH % 4.8 % (24.0-44.0); MEAN CORPUSCULAR HEMOGLOBIN 29.5 pg (27.0-33.0); MEAN CORPUSCULAR HGB CONC 30.8 g/dl (32.0-36.5); MONO # 0.3 10^3/uL (0.0-0.8); MONO % 1.9 % (2.0-8.0); NEUTROPHILS # 14.7 10^3/uL (1.5-8.5); NEUTROPHILS % 92.2 % (36.0-66.0); PLATELET COUNT, AUTOMATED 466 10^3/uL (150-450); WHITE BLOOD COUNT 15.9 10^3/uL (4.0-10.0)
[2021-08-30] MEDS ORDERED: HumuLIN R (REGULAR) INSULIN (NovoLIN R) **100U/ML** PER UNIT IV ONE (19:00)
[2021-08-30 19:19] LABS: OSMOLALITY SERUM 316 MOSM/KG (275-295)
[2021-08-30 19:22] LABS: ACETONE/KETONE > 46.00 MG/DL (<2.81); ALBUMIN 4.2 GM/DL (3.2-5.2); ALT/SGPT 38 U/L (12-78); BILIRUBIN,DIRECT 0.2 MG/DL (0.0-0.2); BILIRUBIN,TOTAL 0.6 MG/DL (0.2-1.0); BLOOD UREA NITROGEN 18 MG/DL (7-18); CALCIUM LEVEL 9.6 MG/DL (8.5-10.1); CARBON DIOXIDE LEVEL 8 MEQ/L (21-32); CHLORIDE LEVEL 104 MEQ/L (98-107); CREATININE FOR GFR 1.08 MG/DL (0.55-1.30); GLOMERULAR FILTRATION RATE > 60.0 (>60); GLUCOSE, FASTING 425 MG/DL (70-100); LIPASE 31 U/L (73-393); MAGNESIUM LEVEL 2.3 MG/DL (1.8-2.4); PHOSPHORUS LEVEL 5.4 MG/DL (2.5-4.9); POTASSIUM SERUM 5.2 MEQ/L (3.5-5.1); SODIUM LEVEL 134 MEQ/L (136-145)
[2021-08-30] MEDS ORDERED: INSULIN REGULAR IN 0.9 % NACL 100 UNIT in IV 1 EA IV SCH ×2 (20:05)
[2021-08-30] MEDS ORDERED: INSULIN IV RATE CHANGE DOCUMENTATION ML/HR XX SCH (20:05)
[2021-08-30] MEDS ORDERED: SUCR1ORA2 PO (20:33)
[2021-08-30] MEDS ORDERED: HOME MED LIST COMPLETE! XX SCH (20:35)
[2021-08-30] MEDS ORDERED: NS 1,000 ML IV SCH (22:00)
[2021-08-30] MEDS ORDERED: SODIUM BICARBONATE 8.4% INJ 50 ML SYRINGE IV SCH (22:00)
[2021-08-30] MEDS ORDERED: DEXTROSE 50% 50 ML SYRINGE IV PRN (22:35)
[2021-08-30] MEDS ORDERED: GLUCOSE 4GM CHEW TABLET PO PRN (22:35)
[2021-08-30] MEDS ORDERED: GLUCAGON INJ 1MG VIAL SC PRN (22:35)
[2021-08-30] MEDS ORDERED: ONDANSETRON 4MG/2ML VIAL IV PRN (22:45)
[2021-08-30 22:52] LABS: VENOUS BASE EXCESS -21.3 (-2.0-2.0); VENOUS HCO3 6.6 MEQ/L (23.0-27.0); VENOUS O2 SATURATION 95.8 % (60.0-80.0); VENOUS PARTIAL PRESSURE CO2 21.9 mmHg (38.0-50.0); VENOUS PARTIAL PRESSURE O2 89.7 mmHg (30.0-50.0); VENOUS STANDARD HCO3 9.2 MEQ/L; VENOUS TOTAL CO2 7.3 MEQ/L (24.0-28.0)
[2021-08-30 23:23] LABS: BLOOD UREA NITROGEN 16 MG/DL (7-18); CALCIUM LEVEL 8.7 MG/DL (8.5-10.1); CARBON DIOXIDE LEVEL 7 MEQ/L (21-32); CHLORIDE LEVEL 112 MEQ/L (98-107); CREATININE FOR GFR 1.08 MG/DL (0.55-1.30); GLOMERULAR FILTRATION RATE > 60.0 (>60); GLUCOSE, FASTING 284 MG/DL (70-100); PHOSPHORUS LEVEL 3.7 MG/DL (2.5-4.9); POTASSIUM SERUM 4.7 MEQ/L (3.5-5.1); SODIUM LEVEL 140 MEQ/L (136-145)
[2021-08-30] MEDS ORDERED: SUMAtriptan SUCCINATE 6 MG/0.5 ML VIAL SC ONE (23:30)
[2021-08-30 23:42] LABS: OSMOLALITY SERUM 305 MOSM/KG (275-295)
[2021-08-30] MEDS: KCL 20MEQ IN D5/0.45NS 1000ML 1,000 ML IV SCH (23:59)
[2021-08-31] MEDS ORDERED: INSULIN REGULAR IN 0.9 % NACL 100 UNIT in IV 1 EA IV SCH ×2
[2021-08-31] MEDS: INSULIN IV RATE CHANGE DOCUMENTATION ML/HR XX SCH ×5 (00:49→05:29)
[2021-08-31 01:04] LABS: VENOUS BASE EXCESS -16.2 (-2.0-2.0); VENOUS HCO3 10.9 MEQ/L (23.0-27.0); VENOUS PARTIAL PRESSURE CO2 30.3 mmHg (38.0-50.0); VENOUS PARTIAL PRESSURE O2 32.9 mmHg (30.0-50.0); VENOUS PH 7.174 UNITS (7.330-7.430); VENOUS STANDARD HCO3 11.7 MEQ/L; VENOUS TOTAL CO2 11.8 MEQ/L (24.0-28.0)
[2021-08-31 01:29] LABS: OSMOLALITY SERUM 297 MOSM/KG (275-295)
[2021-08-31 01:35] LABS: BLOOD UREA NITROGEN 15 MG/DL (7-18); CALCIUM LEVEL 8.7 MG/DL (8.5-10.1); CARBON DIOXIDE LEVEL 13 MEQ/L (21-32); CHLORIDE LEVEL 109 MEQ/L (98-107); CREATININE FOR GFR 1.05 MG/DL (0.55-1.30); GLOMERULAR FILTRATION RATE > 60.0 (>60); GLUCOSE, FASTING 110 MG/DL (70-100); PHOSPHORUS LEVEL 2.2 MG/DL (2.5-4.9); POTASSIUM SERUM 4.4 MEQ/L (3.5-5.1); SODIUM LEVEL 139 MEQ/L (136-145)
[2021-08-31] MEDS: KCL 20MEQ IN D5/0.45NS 1000ML 1,000 ML IV SCH ×2 (04:05→07:40)
[2021-08-31 05:09] LABS: VENOUS BASE EXCESS -12.6 (-2.0-2.0); VENOUS HCO3 12.9 MEQ/L (23.0-27.0); VENOUS PARTIAL PRESSURE CO2 28.8 mmHg (38.0-50.0); VENOUS STANDARD HCO3 14.4 MEQ/L; VENOUS TOTAL CO2 13.8 MEQ/L (24.0-28.0)
[2021-08-31 05:18] LABS: HEMATOCRIT 32.4 % (36.0-47.0); MEAN CORPUSCULAR HEMOGLOBIN 29.9 pg (27.0-33.0); MEAN CORPUSCULAR HGB CONC 32.1 g/dl (32.0-36.5); MEAN CORPUSCULAR VOLUME 93.1 fl (80.0-96.0); PLATELET COUNT, AUTOMATED 431 10^3/uL (150-450); RED BLOOD COUNT 3.48 10^6/uL (4.00-5.40); WHITE BLOOD COUNT 16.2 10^3/uL (4.0-10.0)
[2021-08-31 05:22] LABS: HEMOGLOBIN 10.4 g/dl (12.0-15.5)
[2021-08-31 05:37] LABS: ACETONE/KETONE 14.87 MG/DL (<2.81); BLOOD UREA NITROGEN 10 MG/DL (7-18); CALCIUM LEVEL 8.1 MG/DL (8.5-10.1); CARBON DIOXIDE LEVEL 17 MEQ/L (21-32); CHLORIDE LEVEL 111 MEQ/L (98-107); GLOMERULAR FILTRATION RATE > 60.0 (>60); GLUCOSE, FASTING 156 MG/DL (70-100); MAGNESIUM LEVEL 1.9 MG/DL (1.8-2.4); PHOSPHORUS LEVEL 1.5 MG/DL (2.5-4.9); POTASSIUM SERUM 4.6 MEQ/L (3.5-5.1); SODIUM LEVEL 136 MEQ/L (136-145)
[2021-08-31] MEDS: LEVEMIR (INSULIN DETEMIR) 1 UNITS/0.01ML SC SCH ×2 (06:31→21:00)
[2021-08-31] MEDS: LEVOTHYROXINE 75MCG TABLET (0.075MG) PO SCH (06:31)
[2021-08-31] MEDS ORDERED: NS 1,000 ML IV ONE (08:05)
[2021-08-31] MEDS ORDERED: LISINOPRIL *2.5 MG* TAB PO SCH (09:00)
[2021-08-31] MEDS ORDERED: GLUCOSE 4GM CHEW TABLET PO PRN (09:45)
[2021-08-31] MEDS ORDERED: DEXTROSE 50% 50 ML SYRINGE IV PRN (09:45)
[2021-08-31] MEDS ORDERED: GLUCAGON INJ 1MG VIAL SC PRN (09:45)
[2021-08-31] MEDS: ENOXAPARIN 40MG/0.4ML SYRINGE (J1650 PER 10MG) SC SCH (09:47)
[2021-08-31] MEDS: SUCRALFATE SUSP 1GM/10ML UD PO SCH ×2 (09:47→21:44)
[2021-08-31] MEDS: PANTOPRAZOLE 40MG VIAL (C9113 PER 1) IV SCH (09:48)
[2021-08-31] MEDS: ATORVASTATIN 10 MG TAB PO SCH (09:48)
[2021-08-31] MEDS: SERTRALINE HCL 25 MG TABLET PO SCH (09:48)
[2021-08-31] MEDS: NS 1,000 ML IV SCH ×4 (10:16→21:46)
[2021-08-31 10:25] LABS: VENOUS BASE EXCESS -8.1 (-2.0-2.0); VENOUS HCO3 16.1 MEQ/L (23.0-27.0); VENOUS O2 SATURATION 98.6 % (60.0-80.0); VENOUS PARTIAL PRESSURE CO2 28.8 mmHg (38.0-50.0); VENOUS PARTIAL PRESSURE O2 116.5 mmHg (30.0-50.0); VENOUS PH 7.365 UNITS (7.330-7.430)
[2021-08-31 10:49] LABS: BLOOD UREA NITROGEN 7 MG/DL (7-18); CALCIUM LEVEL 7.9 MG/DL (8.5-10.1); CARBON DIOXIDE LEVEL 16 MEQ/L (21-32); CHLORIDE LEVEL 115 MEQ/L (98-107); GLOMERULAR FILTRATION RATE > 60.0 (>60); GLUCOSE, FASTING 98 MG/DL (70-100); PHOSPHORUS LEVEL 1.2 MG/DL (2.5-4.9); POTASSIUM SERUM 3.7 MEQ/L (3.5-5.1); SODIUM LEVEL 139 MEQ/L (136-145)
[2021-08-31] MEDS ORDERED: POTASSIUM PHOSPHATE INJ 30 MMOL in D5W 500 ML IV ONE (11:00)
[2021-08-31] MEDS: HumaLOG INSULIN (NovoLOG) PER UNIT SC SCH ×2 (12:00→18:02)
[2021-08-31 13:55] LABS: VENOUS BASE EXCESS -11.7 (-2.0-2.0); VENOUS HCO3 14.7 MEQ/L (23.0-27.0); VENOUS O2 SATURATION 69.1 % (60.0-80.0); VENOUS PARTIAL PRESSURE CO2 34.8 mmHg (38.0-50.0); VENOUS PARTIAL PRESSURE O2 34.7 mmHg (30.0-50.0); VENOUS PH 7.243 UNITS (7.330-7.430); VENOUS STANDARD HCO3 14.8 MEQ/L; VENOUS TOTAL CO2 15.7 MEQ/L (24.0-28.0)
[2021-08-31 14:29] LABS: OSMOLALITY SERUM 286 MOSM/KG (275-295)
[2021-08-31 14:37] LABS: BLOOD UREA NITROGEN 6 MG/DL (7-18); CARBON DIOXIDE LEVEL 17 MEQ/L (21-32); CHLORIDE LEVEL 113 MEQ/L (98-107); CREATININE FOR GFR 0.82 MG/DL (0.55-1.30); GLOMERULAR FILTRATION RATE > 60.0 (>60); GLUCOSE, FASTING 151 MG/DL (70-100); PHOSPHORUS LEVEL 2.6 MG/DL (2.5-4.9); POTASSIUM SERUM 4.2 MEQ/L (3.5-5.1); SODIUM LEVEL 139 MEQ/L (136-145)
[2021-08-31 15:12] LABS: HIV 1&2 SCREEN CENTAUR NEGATIVE (NEGATIVE)
[2021-08-31] MEDS ORDERED: FLUCONAZOLE 50MG TABLET PO ONE (16:00)
[2021-08-31] MEDS ORDERED: HumaLOG INSULIN (NovoLOG) PER UNIT SC SCH (21:00)
[2021-08-31 23:20] VITALS: BP 101/58
[2021-09-01] MEDS: NS 1,000 ML IV SCH ×3 (03:41→09:10)
[2021-09-01 04:40] VITALS: BP 97/65
[2021-09-01 06:16] LABS: HEMATOCRIT 28.6 % (36.0-47.0); HEMOGLOBIN 9.3 g/dl (12.0-15.5); MEAN CORPUSCULAR HEMOGLOBIN 30.4 pg (27.0-33.0); MEAN CORPUSCULAR HGB CONC 32.5 g/dl (32.0-36.5); MEAN CORPUSCULAR VOLUME 93.5 fl (80.0-96.0); PLATELET COUNT, AUTOMATED 266 10^3/uL (150-450); RED BLOOD COUNT 3.06 10^6/uL (4.00-5.40); WHITE BLOOD COUNT 7.5 10^3/uL (4.0-10.0)
[2021-09-01 06:26] LABS: BLOOD UREA NITROGEN 4 MG/DL (7-18); CALCIUM LEVEL 7.6 MG/DL (8.5-10.1); CARBON DIOXIDE LEVEL 19 MEQ/L (21-32); CHLORIDE LEVEL 116 MEQ/L (98-107); CREATININE FOR GFR 0.55 MG/DL (0.55-1.30); GLOMERULAR FILTRATION RATE > 60.0 (>60); GLUCOSE, FASTING 205 MG/DL (70-100); POTASSIUM SERUM 3.7 MEQ/L (3.5-5.1); SODIUM LEVEL 141 MEQ/L (136-145)
[2021-09-01] MEDS: LEVOTHYROXINE 75MCG TABLET (0.075MG) PO SCH (06:27)
[2021-09-01 08:00] VITALS: BP 105/55
[2021-09-01] MEDS: SERTRALINE HCL 25 MG TABLET PO SCH (08:59)
[2021-09-01] MEDS: PANTOPRAZOLE 40MG VIAL (C9113 PER 1) IV SCH (08:59)
[2021-09-01] MEDS: ATORVASTATIN 10 MG TAB PO SCH (08:59)
[2021-09-01] MEDS: SUCRALFATE SUSP 1GM/10ML UD PO SCH (08:59)
[2021-09-01] MEDS: HumaLOG INSULIN (NovoLOG) PER UNIT SC SCH ×2 (09:00→11:56)
[2021-09-01] MEDS: ENOXAPARIN 40MG/0.4ML SYRINGE (J1650 PER 10MG) SC SCH (09:00)
[2021-09-01] MEDS: LEVEMIR (INSULIN DETEMIR) 1 UNITS/0.01ML SC SCH (09:00)
[2021-09-01 12:00] VITALS: BP 122/84
[2021-09-01] MEDS ORDERED: ADME100I2 SC (12:10)
== END 2021-09-01 12:29 | disposition home health service (06) | DRG 420 ==
LOC: EDBD 16:24 → M ED 16:24 → M ED INP 22:00 → M PCU 08-31 23:24
PROVIDERS: ADMIT Family Medicine; ATTEND Internal Medicine
DX: E10.10 Type 1 diabetes mellitus with ketoacidosis without coma (principal); F32.A Depression, unspecified; B37.3 Candidiasis of vulva and vagina; E03.9 Hypothyroidism, unspecified; F41.9 Anxiety disorder, unspecified; D72.829 Elevated white blood cell count, unspecified; Z79.4 Long term (current) use of insulin; Z79.899 Other long term (current) drug therapy; Z11.3 Encounter for screening for infections with a predominantly sexual mode of transmission

== ENCOUNTER → 2022-05-05 | Outpatient (REF) | payer OTHER ==
[~2022-05-05] MED LIST changes: +SUCR1ORA2 PO
== END ==
LOC: M LAB REF 20:52
PROVIDERS: ATTEND Physician Assistant Medical
DX: B34.9 Viral infection, unspecified (principal)

== ENCOUNTER 2022-08-19 12:01 | Inpatient (IN) | payer OTHER ==
[~2022-08-19] VITALS: Ht 157.5 cm; Wt 62.2 kg
[2022-08-19] VITALS (7 sets, daily range): BP systolic 89–99; BP diastolic 52–58
[2022-08-19] MEDS ORDERED: NS 1,000 ML IV ONE ×2 (12:40→13:40)
[2022-08-19] MEDS ORDERED: ONDANSETRON 4MG 2ML VIAL IV ONE (12:50)
[2022-08-19 13:04] LABS: VENOUS BASE EXCESS -15.2 (-2.0-2.0); VENOUS HCO3 13.9 MEQ/L (23.0-27.0); VENOUS PARTIAL PRESSURE O2 43.7 mmHg (30.0-50.0); VENOUS PH 7.116 UNITS (7.330-7.430); VENOUS STANDARD HCO3 12.6 MEQ/L; VENOUS TOTAL CO2 15.2 MEQ/L (24.0-28.0)
[2022-08-19 13:13] LABS: APPEARANCE, URINE MANUAL CLEAR (CLEAR); BILIRUBIN, URINE MANUAL NEGATIVE (NEGATIVE); BLOOD URINE MANUAL NEGATIVE (NEGATIVE); COLOR, URINE MANUAL LT YELLOW (YELLOW); GLUCOSE, URINE (UA) MANUAL 4+(1000 MG/DL) mg/dL (NEGATIVE); HEMOGLOBIN 13.3 g/dl (12.0-15.5); KETONE, URINE MANUAL 3+ mg/dL (NEGATIVE); LEUKOCYTE ESTERASE, URINE MAN NEGATIVE (NEGATIVE); LYMPH % 3.9 % (24.0-44.0); MEAN CORPUSCULAR HEMOGLOBIN 29.8 pg (27.0-33.0); MEAN CORPUSCULAR HGB CONC 30.9 g/dl (32.0-36.5); MEAN CORPUSCULAR VOLUME 96.4 fl (80.0-96.0); MONO % 3.6 % (2.0-8.0); NEUTROPHILS % 91.7 % (36.0-66.0); NITRITE, URINE MANUAL NEGATIVE (NEGATIVE); PLATELET COUNT, AUTOMATED 293 10^3/uL (150-450); PROTEIN, URINE MANUAL NEGATIVE (NEGATIVE); RED BLOOD COUNT 4.46 10^6/uL (4.00-5.40); UROBILINOGEN, URINE MANUAL NORMAL (NORMAL); WHITE BLOOD COUNT 16.4 10^3/uL (4.0-10.0)
[2022-08-19 13:14] LABS: BASO % 0.2 % (0.0-1.0); LYMPH # 0.6 10^3/uL (1.5-5.0); MONO # 0.6 10^3/uL (0.0-0.8)
[2022-08-19] MEDS ORDERED: cefTRIAXone SOD 1 GM in D5W MINI-BAG PLUS 50 ML IV ONE (13:40)
[2022-08-19 13:42] LABS: ALBUMIN 4.1 G/DL (3.2-5.2); ALKALINE PHOSPHATASE 92 U/L (46-116); ALT/SGPT 17 U/L (7.0-40); AST/SGOT 29 U/L (<34); BILIRUBIN,DIRECT 0.1 MG/DL (<0.4); BILIRUBIN,TOTAL 0.4 MG/DL (0.3-1.2); TOTAL PROTEIN 7.5 G/DL (5.7-8.2)
[2022-08-19] MEDS ORDERED: HumuLIN R (REGULAR) INSULIN (NovoLIN R) **100U/ML** PER UNIT IV ONE (13:50)
[2022-08-19 13:52] LABS: ACETONE/KETONE > 4.50 MMOL/L (0.02-0.27)
[2022-08-19] MEDS ORDERED: INSULIN REGULAR IN 0.9 % NACL 100 UNIT in IV 1 EA IV SCH ×4 (14:10→17:35)
[2022-08-19 15:27] LABS: RSV AMPLIFICATION NEGATIVE (NEGATIVE)
[2022-08-19 15:41] LABS: BLOOD UREA NITROGEN 21 MG/DL (9-23); CALCIUM LEVEL 8.6 MG/DL (8.5-10.1); CARBON DIOXIDE LEVEL 11 MMOL/L (20-31); CHLORIDE LEVEL 97 MMOL/L (98-107); CREATININE FOR GFR 0.79 MG/DL (0.55-1.30); GLOMERULAR FILTRATION RATE > 60.0 (>60); GLUCOSE, FASTING 518 MG/DL (60-100); POTASSIUM SERUM 5.3 MMOL/L (3.5-5.1); SODIUM LEVEL 130 MMOL/L (136-145)
[2022-08-19] MEDS ORDERED: REMDESIVIR 200 MG in NS 250 ML IV ONE (16:10)
[2022-08-19] MEDS ORDERED: LR 1,000 ML IV ONE (16:30)
[2022-08-19] MEDS: D5W/0.45% SODIUM CHLORIDE 1,000 ML IV SCH ×2 (17:30→18:15)
[2022-08-19] MEDS ORDERED: NS 1,000 ML IV SCH (17:30)
[2022-08-19 17:58] LABS: ALBUMIN 3.1 G/DL (3.2-5.2); ALKALINE PHOSPHATASE 72 U/L (46-116); ALT/SGPT 15 U/L (7.0-40); AST/SGOT 23 U/L (<34); BILIRUBIN,TOTAL 0.2 MG/DL (0.3-1.2); BLOOD UREA NITROGEN 20 MG/DL (9-23); CALCIUM LEVEL 7.5 MG/DL (8.5-10.1); CARBON DIOXIDE LEVEL < 10.0 MMOL/L (20-31); CHLORIDE LEVEL 102 MMOL/L (98-107); CREATININE FOR GFR 0.74 MG/DL (0.55-1.30); GLOMERULAR FILTRATION RATE > 60.0 (>60); GLUCOSE, FASTING 284 MG/DL (60-100); SODIUM LEVEL 130 MMOL/L (136-145); TOTAL PROTEIN 5.9 G/DL (5.7-8.2)
[2022-08-19] MEDS: INSULIN IV RATE CHANGE DOCUMENTATION ML/HR XX SCH ×2 (18:07→22:24)
[2022-08-19] MEDS ORDERED: SODIUM CHLORIDE 0.9% INJ 10 ML SYR IV ONE (18:10)
[2022-08-19] MEDS: PANTOPRAZOLE 40MG VIAL IV SCH (18:55)
[2022-08-19] MEDS: ACETAMINOPHEN TAB 650MG DOSE (2X325MG) PO PRN (20:56)
[2022-08-19] MEDS: ENOXAPARIN 40MG/0.4ML SYRINGE (J1650 PER 10MG) SC SCH (20:57)
[2022-08-19 22:34] LABS: ALKALINE PHOSPHATASE 65 U/L (46-116); ALT/SGPT 14 U/L (7.0-40); AST/SGOT 23 U/L (<34); BILIRUBIN,TOTAL 0.2 MG/DL (0.3-1.2); BLOOD UREA NITROGEN 14 MG/DL (9-23); CALCIUM LEVEL 7.6 MG/DL (8.5-10.1); CARBON DIOXIDE LEVEL 16 MMOL/L (20-31); CHLORIDE LEVEL 105 MMOL/L (98-107); CREATININE FOR GFR 0.68 MG/DL (0.55-1.30); GLOMERULAR FILTRATION RATE > 60.0 (>60); GLUCOSE, FASTING 225 MG/DL (60-100); MAGNESIUM LEVEL 1.8 MG/DL (1.8-2.4); PHOSPHORUS LEVEL 1.6 MG/DL (2.5-4.9); POTASSIUM SERUM 4.2 MMOL/L (3.5-5.1); SODIUM LEVEL 133 MMOL/L (136-145); TOTAL PROTEIN 5.4 G/DL (5.7-8.2)
[2022-08-19] MEDS ORDERED: GLUCOSE 4GM CHEW TABLET PO PRN (23:10)
[2022-08-19] MEDS ORDERED: DEXTROSE 50% 50ML SYRINGE IV PRN (23:10)
[2022-08-19] MEDS ORDERED: GLUCAGON INJ 1MG VIAL SC PRN (23:10)
[2022-08-19] MEDS ORDERED: LEVEMIR (INSULIN DETEMIR) 1 UNITS/0.01ML SC SCH (23:10)
[2022-08-20] VITALS (11 sets, daily range): BP systolic 89–107; BP diastolic 47–68
[2022-08-20 04:25] LABS: HEMATOCRIT 34.4 % (36.0-47.0); MEAN CORPUSCULAR HEMOGLOBIN 29.9 pg (27.0-33.0); MEAN CORPUSCULAR HGB CONC 32.3 g/dl (32.0-36.5); MEAN CORPUSCULAR VOLUME 92.7 fl (80.0-96.0); PLATELET COUNT, AUTOMATED 254 10^3/uL (150-450); RED BLOOD COUNT 3.71 10^6/uL (4.00-5.40); WHITE BLOOD COUNT 12.4 10^3/uL (4.0-10.0)
[2022-08-20 04:37] LABS: HEMOGLOBIN 11.1 g/dl (12.0-15.5)
[2022-08-20 04:46] LABS: ALBUMIN 2.9 G/DL (3.2-5.2); ALKALINE PHOSPHATASE 63 U/L (46-116); ALT/SGPT 12 U/L (7.0-40); AST/SGOT 20 U/L (<34); BILIRUBIN,TOTAL 0.3 MG/DL (0.3-1.2); BLOOD UREA NITROGEN 15 MG/DL (9-23); CALCIUM LEVEL 7.8 MG/DL (8.5-10.1); CARBON DIOXIDE LEVEL 16 MMOL/L (20-31); CHLORIDE LEVEL 103 MMOL/L (98-107); CREATININE FOR GFR 0.69 MG/DL (0.55-1.30); GLOMERULAR FILTRATION RATE > 60.0 (>60); GLUCOSE, FASTING 246 MG/DL (60-100); MAGNESIUM LEVEL 1.7 MG/DL (1.8-2.4); PHOSPHORUS LEVEL 2.7 MG/DL (2.5-4.9); POTASSIUM SERUM 4.3 MMOL/L (3.5-5.1); SODIUM LEVEL 133 MMOL/L (136-145); TOTAL PROTEIN 5.4 G/DL (5.7-8.2)
[2022-08-20] MEDS: ACETAMINOPHEN TAB 650MG DOSE (2X325MG) PO PRN ×2 (05:37→21:05)
[2022-08-20] MEDS ORDERED: LEVEMIR (INSULIN DETEMIR) 1 UNITS/0.01ML SC SCH (07:30)
[2022-08-20] MEDS ORDERED: SUCRALFATE SUSP 1GM/10ML UD PO PRN (07:40)
[2022-08-20] MEDS ORDERED: LR 1,000 ML IV ONE (08:00)
[2022-08-20] MEDS: MAGNESIUM OXIDE 400MG TAB (MAG-OX) PO SCH ×2 (08:45→21:05)
[2022-08-20] MEDS: PANTOPRAZOLE 40MG VIAL IV SCH (08:45)
[2022-08-20] MEDS: INSULIN LISPRO (NovoLOG) PER UNIT SC SCH ×3 (08:45→18:26)
[2022-08-20 12:00] LABS: ALBUMIN 3.2 G/DL (3.2-5.2); ALKALINE PHOSPHATASE 73 U/L (46-116); ALT/SGPT 13 U/L (7.0-40); AST/SGOT 25 U/L (<34); BILIRUBIN,TOTAL 0.2 MG/DL (0.3-1.2); BLOOD UREA NITROGEN 14 MG/DL (9-23); CALCIUM LEVEL 8.3 MG/DL (8.5-10.1); CARBON DIOXIDE LEVEL 20 MMOL/L (20-31); CHLORIDE LEVEL 103 MMOL/L (98-107); CREATININE FOR GFR 0.64 MG/DL (0.55-1.30); GLOMERULAR FILTRATION RATE > 60.0 (>60); GLUCOSE, FASTING 270 MG/DL (60-100); POTASSIUM SERUM 3.9 MMOL/L (3.5-5.1); SODIUM LEVEL 133 MMOL/L (136-145); TOTAL PROTEIN 6.1 G/DL (5.7-8.2)
[2022-08-20] MEDS: NovoLOG MIX 70/30 PER UNIT SC SCH ×2 (13:46→18:27)
[2022-08-20] MEDS ORDERED: REMDESIVIR 100 MG in NS 250 ML IV SCH (16:10)
[2022-08-20] MEDS ORDERED: SODIUM CHLORIDE 0.9% INJ 10 ML SYR IV SCH (17:10)
[2022-08-20] MEDS ORDERED: FLUCONAZOLE 50MG TABLET PO ONE (20:00)
[2022-08-20] MEDS ORDERED: INSULIN LISPRO (NovoLOG) PER UNIT SC SCH (21:00)
[2022-08-20] MEDS: ENOXAPARIN 40MG/0.4ML SYRINGE (J1650 PER 10MG) SC SCH (21:05)
[2022-08-21] MEDS ORDERED: MOM 30ML SUSPENSION UDC PO PRN (02:55)
[2022-08-21] MEDS ORDERED: DOCUSATE SODIUM 100MG CAPSULE PO PRN (02:55)
[2022-08-21] MEDS ORDERED: MIRALAX *UNIT DOSE* 17GM PACKET PO PRN (02:55)
[2022-08-21 06:00] VITALS: BP 100/61
[2022-08-21 08:00] LABS: BASO % 0.3 % (0.0-1.0); EOS # 0.2 10^3/uL (0.0-0.5); EOS % 2.6 % (0.0-3.0); HEMATOCRIT 33.3 % (36.0-47.0); HEMOGLOBIN 10.9 g/dl (12.0-15.5); LYMPH # 1.9 10^3/uL (1.5-5.0); LYMPH % 32.7 % (24.0-44.0); MEAN CORPUSCULAR HEMOGLOBIN 29.8 pg (27.0-33.0); MEAN CORPUSCULAR HGB CONC 32.7 g/dl (32.0-36.5); MONO # 0.5 10^3/uL (0.0-0.8); MONO % 8.3 % (2.0-8.0); NEUTROPHILS # 3.3 10^3/uL (1.5-8.5); NEUTROPHILS % 55.9 % (36.0-66.0); PLATELET COUNT, AUTOMATED 203 10^3/uL (150-450); RED BLOOD COUNT 3.66 10^6/uL (4.00-5.40); WHITE BLOOD COUNT 5.8 10^3/uL (4.0-10.0)
[2022-08-21 08:25] LABS: BLOOD UREA NITROGEN 10 MG/DL (9-23); CALCIUM LEVEL 7.9 MG/DL (8.5-10.1); CARBON DIOXIDE LEVEL 24 MMOL/L (20-31); CHLORIDE LEVEL 104 MMOL/L (98-107); CREATININE FOR GFR 0.56 MG/DL (0.55-1.30); GLOMERULAR FILTRATION RATE > 60.0 (>60); GLUCOSE, FASTING 300 MG/DL (60-100); POTASSIUM SERUM 3.8 MMOL/L (3.5-5.1); SODIUM LEVEL 137 MMOL/L (136-145)
[2022-08-21] MEDS ORDERED: BASA100I SQ (08:40)
[2022-08-21] MEDS ORDERED: ADME100I2 SC (08:40)
[2022-08-21] MEDS ORDERED: LEVEMIR (INSULIN DETEMIR) 1 UNITS/0.01ML SC SCH (09:00)
[2022-08-21] MEDS: PANTOPRAZOLE 40MG VIAL IV SCH (10:45)
[2022-08-21] MEDS: MAGNESIUM OXIDE 400MG TAB (MAG-OX) PO SCH (10:46)
[2022-08-21] MEDS: NovoLOG MIX 70/30 PER UNIT SC SCH ×2 (10:46→12:00)
[2022-08-21] MEDS: INSULIN LISPRO (NovoLOG) PER UNIT SC SCH ×2 (12:00→12:10)
== END 2022-08-21 18:10 | disposition home or self-care (01) | DRG 420 ==
LOC: M ED 12:01 → EDBD 12:01 → M ED INP 15:59 → ENRESERV 16:37 → M ICU 17:05 → M MS5PR 08-20 16:52
PROVIDERS: ADMIT Internal Medicine Critical Care Medicine; ATTEND Family Medicine
PROC: XW033E5 Introduction of Remdesivir Anti-infective into Peripheral Vein, Percutaneous Approach, New Technology Group 5 (ICD-10-PCS; principal; 2022-08-19)
DX: E11.10 Type 2 diabetes mellitus with ketoacidosis without coma (principal); U07.1 COVID-19; E86.0 Dehydration; E03.9 Hypothyroidism, unspecified; K29.70 Gastritis, unspecified, without bleeding; F41.9 Anxiety disorder, unspecified; F32.A Depression, unspecified; Z90.710 Acquired absence of both cervix and uterus; Z79.4 Long term (current) use of insulin; Z79.890 Hormone replacement therapy; Z79.899 Other long term (current) drug therapy; T38.3X6A Underdosing of insulin and oral hypoglycemic [antidiabetic] drugs, initial encounter; Z91.128 Patient's intentional underdosing of medication regimen for other reason

== ENCOUNTER 2023-01-15 09:04 | Inpatient (IN) | payer OTHER ==
[~2023-01-15] VITALS: Ht 157.5 cm; Wt 58.1 kg
[~2023-01-15 09:04] MED LIST changes: +FLUCONAZOLE 50MG TABLET PO SCH; +LISINOPRIL *2.5 MG* TAB PO SCH
[2023-01-15] MEDS ORDERED: NS 1,000 ML IV ONE ×2 (09:50→11:15)
[2023-01-15 10:30] LABS: VENOUS BASE EXCESS -9.7 (-2.0-2.0); VENOUS HCO3 15.5 MMOL/L (23.0-27.0); VENOUS O2 SATURATION 74.4 % (60.0-80.0); VENOUS PARTIAL PRESSURE CO2 32.4 mmHg (38.0-50.0); VENOUS PARTIAL PRESSURE O2 40.6 mmHg (30.0-50.0); VENOUS PH 7.299 UNITS (7.330-7.430); VENOUS STANDARD HCO3 16.4 MMOL/L; VENOUS TOTAL CO2 16.5 MMOL/L (24.0-28.0)
[2023-01-15 10:34] LABS: BASO % 0.1 % (0.0-1.0); EOS % 0.1 % (0.0-3.0); HEMATOCRIT 37.5 % (36.0-47.0); HEMOGLOBIN 12.5 g/dl (12.0-15.5); LYMPH # 1.5 10^3/uL (1.5-5.0); LYMPH % 8.2 % (24.0-44.0); MEAN CORPUSCULAR HEMOGLOBIN 30.4 pg (27.0-33.0); MEAN CORPUSCULAR HGB CONC 33.3 g/dl (32.0-36.5); MEAN CORPUSCULAR VOLUME 91.2 fl (80.0-96.0); MONO # 1.3 10^3/uL (0.0-0.8); MONO % 7.1 % (2.0-8.0); NEUTROPHILS # 15.7 10^3/uL (1.5-8.5); PLATELET COUNT, AUTOMATED 380 10^3/uL (150-450); RED BLOOD COUNT 4.11 10^6/uL (4.00-5.40); WHITE BLOOD COUNT 18.6 10^3/uL (4.0-10.0)
[2023-01-15 10:50] LABS: HEMOGLOBIN A1c 9.1 % (4.0-6.0)
[2023-01-15 10:59] LABS: ETHYL ALCOHOL (ETHANOL) < 0.003 % (0.000-0.010); LIPASE 24 U/L (12-53)
[2023-01-15 11:00] LABS: ACETAMINOPHEN LEVEL < 2.0 UG/ML (10.0-20.0); ALBUMIN 4.5 G/DL (3.2-5.2); ALKALINE PHOSPHATASE 90 U/L (46-116); ALT/SGPT 17 U/L (7.0-40); AST/SGOT 32 U/L (<34); BILIRUBIN,DIRECT 0.1 MG/DL (<0.4); BILIRUBIN,TOTAL 0.4 MG/DL (0.3-1.2); BLOOD UREA NITROGEN 32 MG/DL (9-23); CALCIUM LEVEL 9.2 MG/DL (8.5-10.1); CARBON DIOXIDE LEVEL 17 MMOL/L (20-31); CHLORIDE LEVEL 96 MMOL/L (98-107); CREATININE FOR GFR 1.01 MG/DL (0.55-1.30); GLOMERULAR FILTRATION RATE > 60.0 (>60); GLUCOSE, FASTING 339 MG/DL (60-100); MAGNESIUM LEVEL 2.2 MG/DL (1.8-2.4); PHOSPHORUS LEVEL 3.5 MG/DL (2.5-4.9); POTASSIUM SERUM 4.1 MMOL/L (3.5-5.1); SALICYLATE LEVEL < 3.0 MG/DL (<30); SODIUM LEVEL 132 MMOL/L (136-145); TOTAL PROTEIN 7.1 G/DL (5.7-8.2)
[2023-01-15 11:02] LABS: FREE T4 0.95 NG/DL (0.89-1.76); OSMOLALITY SERUM 304 MOSM/KG (275-295); THYROID STIMULATING HORMONE 4.033 uIU/ML (0.55-4.78)
[2023-01-15 11:03] LABS: ACETONE/KETONE > 4.50 MMOL/L (0.02-0.27)
[2023-01-15 11:06] LABS: HCG, SERUM QUALITATIVE NEGATIVE (NEGATIVE); RSV AMPLIFICATION NEGATIVE (NEGATIVE)
[2023-01-15] MEDS ORDERED: INSULIN REGULAR IN 0.9 % NACL 100 UNIT in IV 1 EA IV SCH ×2 (11:15)
[2023-01-15] MEDS ORDERED: INSULIN IV RATE CHANGE DOCUMENTATION ML/HR XX SCH (11:15)
[2023-01-15] MEDS ORDERED: PIPERACILLIN/TAZOBACTAM SOD 4.5 GM in D5W MINI-BAG PLUS 50 ML IV ONE (11:15)
[2023-01-15] MEDS ORDERED: HumuLIN R (REGULAR) INSULIN (NovoLIN R) **100U/ML** PER UNIT IV ONE (11:15)
[2023-01-15] MEDS ORDERED: ISOVUE-370 76% 100ML VIAL As Ordered ONE (11:16)
[2023-01-15] MEDS ORDERED: MED REC IN PROGRESS XX SCH (11:30)
[2023-01-15 11:37] LABS: AMPHETAMINES LEVEL URINE NEGATIVE (NEGATIVE); BARBITURATES URINE NEGATIVE (NEGATIVE); BENZODIAZEPINES URINE NEGATIVE (NEGATIVE); METHADONE URINE NEGATIVE (NEGATIVE); OPIATES URINE NEGATIVE (NEGATIVE); PHENCYCLIDINE URINE NEGATIVE (NEGATIVE)
[2023-01-15 11:39] LABS: CANNABINOIDS URINE POSITIVE (NEGATIVE); COCAINE METABOLITE URINE POSITIVE (NEGATIVE)
[2023-01-15] MEDS ORDERED: LR 1,000 ML IV SCH (12:20)
[2023-01-15] MEDS ORDERED: BASA100I SC ×2 (13:21→13:23)
[2023-01-15] MEDS ORDERED: HOME MED LIST COMPLETE! XX SCH (13:25)
[2023-01-15 13:31] LABS: BLOOD UREA NITROGEN 26 MG/DL (9-23); CALCIUM LEVEL 7.6 MG/DL (8.5-10.1); CARBON DIOXIDE LEVEL 18 MMOL/L (20-31); CHLORIDE LEVEL 104 MMOL/L (98-107); CREATININE FOR GFR 0.87 MG/DL (0.55-1.30); GLOMERULAR FILTRATION RATE > 60.0 (>60); GLUCOSE, FASTING 211 MG/DL (60-100); MAGNESIUM LEVEL 2.1 MG/DL (1.8-2.4); SODIUM LEVEL 134 MMOL/L (136-145)
[2023-01-15] MEDS ORDERED: LEVEMIR (INSULIN DETEMIR) 1 UNITS/0.01ML SC ONE (13:50)
[2023-01-15] MEDS ORDERED: DEXTROSE 50% 50ML SYRINGE IV PRN (14:20)
[2023-01-15] MEDS ORDERED: GLUCAGON INJ 1MG VIAL SC PRN (14:20)
[2023-01-15] MEDS ORDERED: GLUCOSE 4GM CHEW TABLET PO PRN (14:20)
[2023-01-15] MEDS ORDERED: POTASSIUM CHLORIDE INJ 20 MEQ in D5W/LR 1,000 ML IV SCH (15:00)
[2023-01-15 16:05] VITALS: BP 104/55; TEMP 98.1; O2SAT 100
[2023-01-15 16:10] VITALS: BP 104/55
[2023-01-15] MEDS: ATORVASTATIN 10 MG TAB PO SCH (16:32)
[2023-01-15] MEDS: NS 1,000 ML IV SCH ×2 (16:33→23:50)
[2023-01-15] MEDS: PANTOPRAZOLE 40MG VIAL IV SCH (16:33)
[2023-01-15 17:10] LABS: BLOOD UREA NITROGEN 24 MG/DL (9-23); CALCIUM LEVEL 7.8 MG/DL (8.5-10.1); CARBON DIOXIDE LEVEL 21 MMOL/L (20-31); CHLORIDE LEVEL 106 MMOL/L (98-107); CREATININE FOR GFR 0.85 MG/DL (0.55-1.30); GLOMERULAR FILTRATION RATE > 60.0 (>60); GLUCOSE, FASTING 117 MG/DL (60-100); POTASSIUM SERUM 3.7 MMOL/L (3.5-5.1); SODIUM LEVEL 138 MMOL/L (136-145)
[2023-01-15] MEDS: INSULIN LISPRO (NovoLOG) PER UNIT SC SCH ×2 (17:30→21:00)
[2023-01-15] MEDS: ACETAMINOPHEN TAB 650MG DOSE (2X325MG) PO PRN (20:22)
[2023-01-15] MEDS: LEVEMIR (INSULIN DETEMIR) 1 UNITS/0.01ML SC SCH (21:00)
[2023-01-15 22:00] VITALS: BP 100/55; TEMP 98.1; O2SAT 100
[2023-01-16] MEDS: LEVOTHYROXINE 75MCG TABLET (0.075MG) PO SCH (05:45)
[2023-01-16] MEDS: NS 1,000 ML IV SCH (05:45)
[2023-01-16 05:50] VITALS: BP 110/60; TEMP 98.1; O2SAT 100
[2023-01-16 06:32] LABS: BASO % 0.2 % (0.0-1.0); EOS % 0.3 % (0.0-3.0); HEMATOCRIT 29.9 % (36.0-47.0); LYMPH # 2.3 10^3/uL (1.5-5.0); LYMPH % 17.2 % (24.0-44.0); MEAN CORPUSCULAR HEMOGLOBIN 30.1 pg (27.0-33.0); MEAN CORPUSCULAR HGB CONC 32.8 g/dl (32.0-36.5); MEAN CORPUSCULAR VOLUME 91.7 fl (80.0-96.0); MONO # 0.7 10^3/uL (0.0-0.8); MONO % 5.1 % (2.0-8.0); NEUTROPHILS # 10.1 10^3/uL (1.5-8.5); NEUTROPHILS % 76.7 % (36.0-66.0); RED BLOOD COUNT 3.26 10^6/uL (4.00-5.40); WHITE BLOOD COUNT 13.2 10^3/uL (4.0-10.0)
[2023-01-16 06:41] LABS: BLOOD UREA NITROGEN 13 MG/DL (9-23); CALCIUM LEVEL 7.5 MG/DL (8.5-10.1); CARBON DIOXIDE LEVEL 23 MMOL/L (20-31); CHLORIDE LEVEL 111 MMOL/L (98-107); CREATININE FOR GFR 0.69 MG/DL (0.55-1.30); GLOMERULAR FILTRATION RATE > 60.0 (>60); GLUCOSE, FASTING 74 MG/DL (60-100); MAGNESIUM LEVEL 2.2 MG/DL (1.8-2.4); POTASSIUM SERUM 3.3 MMOL/L (3.5-5.1); SODIUM LEVEL 143 MMOL/L (136-145)
[2023-01-16 06:49] LABS: HEMOGLOBIN 9.8 g/dl (12.0-15.5); PLATELET COUNT, AUTOMATED 248 10^3/uL (150-450)
[2023-01-16] MEDS ORDERED: POTASSIUM CHLORIDE 10MEQ SR TABLET PO ONE (07:15)
[2023-01-16] MEDS: INSULIN LISPRO (NovoLOG) PER UNIT SC SCH ×4 (07:30→20:36)
[2023-01-16] MEDS: ATORVASTATIN 10 MG TAB PO SCH (08:22)
[2023-01-16] MEDS: ENOXAPARIN 40MG/0.4ML SYRINGE (J1650 PER 10MG) SC SCH (08:24)
[2023-01-16] MEDS: ACETAMINOPHEN TAB 650MG DOSE (2X325MG) PO PRN ×2 (08:29→20:45)
[2023-01-16] MEDS: LEVEMIR (INSULIN DETEMIR) 1 UNITS/0.01ML SC SCH ×2 (09:00→20:45)
[2023-01-16] MEDS ORDERED: LEVEMIR (INSULIN DETEMIR) 1 UNITS/0.01ML SC ONE (09:15)
[2023-01-16] MEDS: TOPIRAMATE (TopAMAX) 25 MG TAB PO SCH (09:59)
[2023-01-16 14:00] VITALS: BP 124/80; TEMP 98.1; O2SAT 97
[2023-01-16] MEDS: PANTOPRAZOLE 40MG VIAL IV SCH (16:01)
[2023-01-16 21:00] VITALS: BP 120/82; TEMP 98.1; O2SAT 100
[2023-01-17] MEDS: LEVOTHYROXINE 75MCG TABLET (0.075MG) PO SCH (05:29)
[2023-01-17] MEDS: ACETAMINOPHEN TAB 650MG DOSE (2X325MG) PO PRN (05:29)
[2023-01-17 06:00] VITALS: BP 116/69; TEMP 98.2; O2SAT 99
[2023-01-17 06:17] LABS: BASO % 0.3 % (0.0-1.0); EOS # 0.1 10^3/uL (0.0-0.5); HEMATOCRIT 32.3 % (36.0-47.0); HEMOGLOBIN 10.9 g/dl (12.0-15.5); LYMPH # 1.6 10^3/uL (1.5-5.0); LYMPH % 27.9 % (24.0-44.0); MEAN CORPUSCULAR HEMOGLOBIN 30.2 pg (27.0-33.0); MEAN CORPUSCULAR HGB CONC 33.7 g/dl (32.0-36.5); MEAN CORPUSCULAR VOLUME 89.5 fl (80.0-96.0); MONO # 0.4 10^3/uL (0.0-0.8); MONO % 6.3 % (2.0-8.0); NEUTROPHILS # 3.8 10^3/uL (1.5-8.5); NEUTROPHILS % 64.2 % (36.0-66.0); PLATELET COUNT, AUTOMATED 221 10^3/uL (150-450); RED BLOOD COUNT 3.61 10^6/uL (4.00-5.40); WHITE BLOOD COUNT 5.9 10^3/uL (4.0-10.0)
[2023-01-17 06:45] LABS: BLOOD UREA NITROGEN < 5 MG/DL (9-23); CALCIUM LEVEL 8.1 MG/DL (8.5-10.1); CARBON DIOXIDE LEVEL 27 MMOL/L (20-31); CHLORIDE LEVEL 110 MMOL/L (98-107); CREATININE FOR GFR 0.58 MG/DL (0.55-1.30); GLOMERULAR FILTRATION RATE > 60.0 (>60); GLUCOSE, FASTING 99 MG/DL (60-100); MAGNESIUM LEVEL 2.1 MG/DL (1.8-2.4); POTASSIUM SERUM 3.8 MMOL/L (3.5-5.1); SODIUM LEVEL 144 MMOL/L (136-145)
[2023-01-17] MEDS: INSULIN LISPRO (NovoLOG) PER UNIT SC SCH ×2 (07:20→13:14)
[2023-01-17] MEDS ORDERED: MIRALAX *UNIT DOSE* 17GM PACKET PO SCH (09:00)
[2023-01-17] MEDS: ENOXAPARIN 40MG/0.4ML SYRINGE (J1650 PER 10MG) SC SCH (09:00)
[2023-01-17] MEDS: ATORVASTATIN 10 MG TAB PO SCH (09:19)
[2023-01-17] MEDS: TOPIRAMATE (TopAMAX) 25 MG TAB PO SCH (09:19)
[2023-01-17] MEDS: LEVEMIR (INSULIN DETEMIR) 1 UNITS/0.01ML SC SCH (09:20)
[2023-01-17] MEDS ORDERED: ACETAMINOPHEN TAB 650MG DOSE (2X325MG) PO PRN (10:35)
[2023-01-17] MEDS ORDERED: PROHANCE 279.3MG/ML 5ML VIAL As Ordered ONE (10:52)
[2023-01-17] MEDS ORDERED: SENNA 8.6 MG TAB (SENOKOT) PO PRN (12:35)
[2023-01-17] MEDS ORDERED: LACTULOSE 20GM/30ML SYRUP UDC PO ONE (12:35)
[2023-01-17 14:00] VITALS: BP 126/80; TEMP 98.1; O2SAT 95
[2023-01-17] MEDS ORDERED: LANC30MI XX (14:41)
[2023-01-17] MEDS ORDERED: BLOOKIT21 XX (14:41)
[2023-01-17] MEDS ORDERED: GLUC1TES2 XX (14:41)
[2023-01-17] MEDS ORDERED: ALCOPAD25 TOP (14:41)
[2023-01-17] MEDS ORDERED: ADME100I2 SC (14:50)
[2023-01-17] MEDS ORDERED: BASA100I SC (14:50)
[2023-01-17] MEDS: PANTOPRAZOLE 40MG VIAL IV SCH (15:00)
[2023-01-17] MEDS ORDERED: TOPA50TA8 PO (15:00)
[2023-01-17] MEDS ORDERED: SENN-186 PO (15:09)
[2023-01-17] MEDS ORDERED: MIRA3350 PO (15:09)
== END 2023-01-17 16:00 | disposition home or self-care (01) | DRG 420 ==
LOC: M ED 09:04 → M ED INP 12:10 → ENRESERV 13:39 → M ICU 14:41 → ENRESERV 14:58 → M ED INP 15:05 → M MSPAV 15:59
PROVIDERS: ADMIT Internal Medicine; ATTEND Internal Medicine
DX: E10.10 Type 1 diabetes mellitus with ketoacidosis without coma (principal); I10 Essential (primary) hypertension; B37.32 Chronic candidiasis of vulva and vagina; F32.A Depression, unspecified; G43.909 Migraine, unspecified, not intractable, without status migrainosus; E10.65 Type 1 diabetes mellitus with hyperglycemia; E03.9 Hypothyroidism, unspecified; E78.5 Hyperlipidemia, unspecified; F41.9 Anxiety disorder, unspecified; K59.00 Constipation, unspecified; G44.209 Tension-type headache, unspecified, not intractable; E87.6 Hypokalemia; Z79.4 Long term (current) use of insulin; Z79.899 Other long term (current) drug therapy; Z79.890 Hormone replacement therapy

== ENCOUNTER 2024-08-20 21:42 | Emergency (ER) | payer MEDICAID, OTHER ==
[~2024-08-20] VITALS: Ht 157.5 cm; Wt 72.6 kg
[~2024-08-20 21:42] MED LIST changes: +ALCOPAD25 TOP; +BLOOKIT21 XX; -FLUCONAZOLE 50MG TABLET PO SCH; +GLUC1TES2 XX; +LANC30MI XX; -LISINOPRIL *2.5 MG* TAB PO SCH; +MIRA3350 PO; +SENN-186 PO; +TOPA50TA8 PO
[2024-08-21] MEDS: ACETAMINOPHEN 500 MG TAB PO ONE (01:42)
[2024-08-21 02:30] VITALS: TEMP 98
[2024-08-21] MEDS: CIPRODEX OTIC SUSP 7.5ML AD STA (02:37)
[2024-08-21] MEDS ORDERED: AMOX875T2 PO (03:14)
[2024-08-21] MEDS ORDERED: CIPR7.5D2 AD (03:14)
[2024-08-21] MEDS: AUGMENTIN 875 MG TAB PO ONE (03:38)
[2024-08-21 03:39] VITALS: BP 140/62; O2SAT 98
== END 2024-08-21 03:41 | disposition home or self-care (01) ==
LOC: M ED 21:42
DX: H60.11 Cellulitis of right external ear (principal); H66.91 Otitis media, unspecified, right ear; E11.9 Type 2 diabetes mellitus without complications; I10 Essential (primary) hypertension; E78.5 Hyperlipidemia, unspecified; E03.9 Hypothyroidism, unspecified; F17.290 Nicotine dependence, other tobacco product, uncomplicated; Z79.1 Long term (current) use of non-steroidal anti-inflammatories (NSAID); Z79.2 Long term (current) use of antibiotics; Z79.4 Long term (current) use of insulin; Z79.899 Other long term (current) drug therapy

== ENCOUNTER 2024-09-27 07:41 | Inpatient (IN) | payer OTHER ==
[~2024-09-27] VITALS: Ht 157.5 cm; Wt 59.3 kg
[~2024-09-27 07:41] MED LIST changes: +AMOX875T2 PO; +CIPR7.5D2 AD
[2024-09-27 08:21] LABS: KETONE, URINE AUTO RFX 2+ mg/dL (NEGATIVE); LEUKOCYTE ESTERASE UR AUTO RFX NEGATIVE (NEGATIVE); MUCUS, URINE RFX SMALL (NEGATIVE); NITRITE, URINE AUTO RFX NEGATIVE (NEGATIVE); RBC, URINE AUTO RFX 0 /HPF (0-3); SQUAM EPITHELIAL CELL UR AURFX 2 /HPF (0-6); WBC, URINE AUTO RFX 0 /HPF (0-3)
[2024-09-27] MEDS: NS (Normal Saline) 0.9% 1,000 ML IV ONE ×2 (09:04→09:59)
[2024-09-27] MEDS: ONDANSETRON 4MG 2ML VIAL IV ONE (09:04)
[2024-09-27 09:23] LABS: BASO % 0.2 % (0.0-1.0); HEMATOCRIT 38.9 % (36.0-47.0); HEMOGLOBIN 12.4 g/dl (12.0-15.5); LYMPH # 0.7 10^3/uL (1.5-5.0); LYMPH % 3.7 % (24.0-44.0); MEAN CORPUSCULAR HEMOGLOBIN 29.7 pg (27.0-33.0); MEAN CORPUSCULAR HGB CONC 31.9 g/dl (32.0-36.5); MEAN CORPUSCULAR VOLUME 93.1 fl (80.0-96.0); MONO # 0.5 10^3/uL (0.0-0.8); MONO % 2.9 % (2.0-8.0); NEUTROPHILS # 17.3 10^3/uL (1.5-8.5); NEUTROPHILS % 92.7 % (36.0-66.0); PLATELET COUNT, AUTOMATED 422 10^3/uL (150-450); RED BLOOD COUNT 4.18 10^6/uL (4.00-5.40); WHITE BLOOD COUNT 18.7 10^3/uL (4.0-10.0)
[2024-09-27 09:26] LABS: VENOUS BASE EXCESS -15.1 (-2.0-2.0); VENOUS HCO3 11.9 MMOL/L (23.0-27.0); VENOUS O2 SATURATION 85.3 % (60.0-80.0); VENOUS PARTIAL PRESSURE CO2 32.2 mmHg (38.0-50.0); VENOUS PARTIAL PRESSURE O2 56.3 mmHg (30.0-50.0); VENOUS PH 7.187 UNITS (7.330-7.430); VENOUS STANDARD HCO3 12.9 MMOL/L; VENOUS TOTAL CO2 12.9 MMOL/L (24.0-28.0)
[2024-09-27] MEDS ORDERED: INSULIN IV RATE CHANGE DOCUMENTATION ML/HR XX SCH ×2 (09:40→11:20)
[2024-09-27 09:43] LABS: ETHYL ALCOHOL (ETHANOL) 0.009 % (0.000-0.010); LIPASE 51 U/L (12-53)
[2024-09-27 09:45] LABS: SALICYLATE LEVEL < 3.0 MG/DL (<30)
[2024-09-27 09:54] LABS: HCG, SERUM QUALITATIVE NEGATIVE (NEGATIVE)
[2024-09-27] MEDS: ACETAMINOPHEN *IV* 1,000 MG in IV 1 EA IV ONE (09:58)
[2024-09-27] MEDS: INSULIN REGULAR IN 0.9 % NACL 100 UNIT in IV 1 EA IV SCH (09:59)
[2024-09-27 10:26] LABS: GC DNA AMPLIFICATION NEGATIVE (NEGATIVE)
[2024-09-27 10:41] LABS: ALBUMIN 4.4 G/DL (3.2-5.2); ALKALINE PHOSPHATASE 91 U/L (35-104); ALT/SGPT 29 U/L (7.0-40); AST/SGOT 30 U/L (<34); BILIRUBIN,DIRECT 0.3 MG/DL (<0.4); BILIRUBIN,TOTAL 0.8 MG/DL (0.3-1.2); BLOOD UREA NITROGEN 21 MG/DL (9-23); CALCIUM LEVEL 9.9 MG/DL (8.5-10.1); CARBON DIOXIDE LEVEL 13 MMOL/L (20-31); CHLORIDE LEVEL 97 MMOL/L (98-107); CREATININE FOR GFR 0.87 MG/DL (0.55-1.30); GLOMERULAR FILTRATION RATE > 60.0 (>60); GLUCOSE, FASTING 533 MG/DL (60-100); MAGNESIUM LEVEL 2.1 MG/DL (1.8-2.4); POTASSIUM SERUM 4.8 MMOL/L (3.5-5.1); SODIUM LEVEL 133 MMOL/L (136-145); TOTAL PROTEIN 7.7 G/DL (5.7-8.2)
[2024-09-27 11:00] LABS: OSMOLALITY SERUM 331 MOSM/KG (275-295)
[2024-09-27 11:02] LABS: ACETONE/KETONE > 4.50 MMOL/L (0.02-0.27)
[2024-09-27] MEDS ORDERED: MED REC IN PROGRESS XX SCH (11:05)
[2024-09-27] MEDS ORDERED: INSULIN REGULAR IN 0.9 % NACL 100 UNIT in IV 1 EA IV SCH ×2 (11:20→12:15)
[2024-09-27] MEDS ORDERED: ADME100I2 SC (11:58)
[2024-09-27] MEDS ORDERED: BASA100I SC (11:58)
[2024-09-27] MEDS ORDERED: ADME100I SC (11:58)
[2024-09-27] MEDS ORDERED: HOME MED LIST COMPLETE! XX SCH (12:00)
[2024-09-27 12:18] LABS: Trichomonas vaginalis (AMP) NOT DETECTED (NEGATIVE)
[2024-09-27 12:24] LABS: HEMOGLOBIN A1c 9.3 % (4.0-6.0)
[2024-09-27] MEDS: NS (Normal Saline) 0.9% 1,000 ML IV SCH (12:42)
[2024-09-27] MEDS: KCL 20MEQ IN D5/0.45NS 1000ML 1,000 ML IV SCH (12:42)
[2024-09-27 12:47] LABS: BARBITURATES URINE NEGATIVE (NEGATIVE); BENZODIAZEPINES URINE NEGATIVE (NEGATIVE); CANNABINOIDS URINE NEGATIVE (NEGATIVE); COCAINE METABOLITE URINE NEGATIVE (NEGATIVE); METHADONE URINE NEGATIVE (NEGATIVE); OPIATES URINE NEGATIVE (NEGATIVE); PHENCYCLIDINE URINE NEGATIVE (NEGATIVE)
[2024-09-27 12:48] LABS: AMPHETAMINES LEVEL URINE POSITIVE (NEGATIVE)
[2024-09-27 13:15] VITALS: BP 105/56; TEMP 99.5; O2SAT 100
[2024-09-27] MEDS: INSULIN IV RATE CHANGE DOCUMENTATION ML/HR XX SCH (13:18)
[2024-09-27 14:50] LABS: HEMATOCRIT 32.8 % (36.0-47.0); MEAN CORPUSCULAR HEMOGLOBIN 29.3 pg (27.0-33.0); MEAN CORPUSCULAR HGB CONC 31.4 g/dl (32.0-36.5); MEAN CORPUSCULAR VOLUME 93.4 fl (80.0-96.0); PLATELET COUNT, AUTOMATED 337 10^3/uL (150-450); RED BLOOD COUNT 3.51 10^6/uL (4.00-5.40); WHITE BLOOD COUNT 16.1 10^3/uL (4.0-10.0)
[2024-09-27 15:17] LABS: HEMOGLOBIN 10.3 g/dl (12.0-15.5)
[2024-09-27 15:22] LABS: PHOSPHORUS LEVEL 3.1 MG/DL (2.5-4.9)
[2024-09-27 15:25] LABS: BLOOD UREA NITROGEN 19 MG/DL (9-23); CALCIUM LEVEL 8.1 MG/DL (8.5-10.1); CARBON DIOXIDE LEVEL 17 MMOL/L (20-31); CHLORIDE LEVEL 107 MMOL/L (98-107); CREATININE FOR GFR 0.69 MG/DL (0.55-1.30); GLOMERULAR FILTRATION RATE > 60.0 (>60); GLUCOSE, FASTING 222 MG/DL (60-100); MAGNESIUM LEVEL 1.6 MG/DL (1.8-2.4); PHOSPHORUS LEVEL 3.1 MG/DL (2.5-4.9); SODIUM LEVEL 138 MMOL/L (136-145); THYROID STIMULATING HORMONE 1.135 uIU/ML (0.55-4.78)
[2024-09-27 16:08] VITALS: BP 88/53; TEMP 99; O2SAT 100
[2024-09-27] MEDS: MAG SULF 1GM/100ML (MAG RUN) 1 GM in IV 1 EA IV SCH (16:36)
[2024-09-27] MEDS: ACETAMINOPHEN 325 MG TAB PO PRN (16:37)
[2024-09-27] MEDS: LanTUS (INSULIN GLARGINE INJ) 1 UNITS/0.01 ML SC ONE (16:37)
[2024-09-27 16:42] VITALS: BP 86/45
[2024-09-27] MEDS: ATORVASTATIN 10 MG TAB PO SCH (17:17)
[2024-09-27] MEDS: LEVOTHYROXINE 75MCG TABLET (0.075MG) PO SCH (17:17)
[2024-09-27] MEDS: INSULIN LISPRO (NovoLOG) PER UNIT SC SCH ×2 (17:30→21:02)
[2024-09-27] MEDS ORDERED: GLUCOSE 4 GM CHEW PO PRN (18:10)
[2024-09-27] MEDS ORDERED: DEXTROSE 50% 50ML SYRINGE IV PRN (18:10)
[2024-09-27] MEDS ORDERED: GLUCAGON INJ 1MG VIAL SC PRN (18:10)
[2024-09-27 21:00] VITALS: BP 92/54; TEMP 99.5; O2SAT 99
[2024-09-27 22:52] LABS: BLOOD UREA NITROGEN 18 MG/DL (9-23); CALCIUM LEVEL 7.7 MG/DL (8.5-10.1); CARBON DIOXIDE LEVEL 18 MMOL/L (20-31); CHLORIDE LEVEL 104 MMOL/L (98-107); CREATININE FOR GFR 0.66 MG/DL (0.55-1.30); GLOMERULAR FILTRATION RATE > 60.0 (>60); GLUCOSE, FASTING 360 MG/DL (60-100); MAGNESIUM LEVEL 2.2 MG/DL (1.8-2.4); PHOSPHORUS LEVEL 2.8 MG/DL (2.5-4.9); POTASSIUM SERUM 3.8 MMOL/L (3.5-5.1); SODIUM LEVEL 134 MMOL/L (136-145)
[2024-09-28 00:49] VITALS: BP 84/54; TEMP 98.6; O2SAT 99
[2024-09-28] MEDS: FLUCONAZOLE 50MG TABLET PO ONE (00:50)
[2024-09-28 04:30] VITALS: BP 83/53; TEMP 98.7; O2SAT 100
[2024-09-28 05:31] LABS: BASO % 0.3 % (0.0-1.0); EOS # 0.1 10^3/uL (0.0-0.5); EOS % 0.8 % (0.0-3.0); HEMATOCRIT 31.4 % (36.0-47.0); HEMOGLOBIN 10.3 g/dl (12.0-15.5); LYMPH # 2.5 10^3/uL (1.5-5.0); LYMPH % 17.7 % (24.0-44.0); MEAN CORPUSCULAR HEMOGLOBIN 30.1 pg (27.0-33.0); MEAN CORPUSCULAR HGB CONC 32.8 g/dl (32.0-36.5); MEAN CORPUSCULAR VOLUME 91.8 fl (80.0-96.0); MONO # 0.8 10^3/uL (0.0-0.8); MONO % 5.4 % (2.0-8.0); NEUTROPHILS # 10.7 10^3/uL (1.5-8.5); NEUTROPHILS % 75.4 % (36.0-66.0); PLATELET COUNT, AUTOMATED 354 10^3/uL (150-450); RED BLOOD COUNT 3.42 10^6/uL (4.00-5.40); WHITE BLOOD COUNT 14.2 10^3/uL (4.0-10.0)
[2024-09-28] MEDS: EXCEDRIN MIGRAINE TABLET PO ONE (05:40)
[2024-09-28 05:43] LABS: BLOOD UREA NITROGEN 14 MG/DL (9-23); CALCIUM LEVEL 8.1 MG/DL (8.5-10.1); CARBON DIOXIDE LEVEL 18 MMOL/L (20-31); CHLORIDE LEVEL 106 MMOL/L (98-107); CREATININE FOR GFR 0.62 MG/DL (0.55-1.30); GLOMERULAR FILTRATION RATE > 60.0 (>60); GLUCOSE, FASTING 269 MG/DL (60-100); MAGNESIUM LEVEL 1.9 MG/DL (1.8-2.4); POTASSIUM SERUM 4.2 MMOL/L (3.5-5.1); SODIUM LEVEL 136 MMOL/L (136-145)
[2024-09-28 05:46] LABS: FREE T4 1.07 NG/DL (0.89-1.76)
[2024-09-28 08:00] VITALS: BP 88/52; TEMP 98.1
[2024-09-28] MEDS: ENOXAPARIN 40MG/0.4ML SYRINGE (J1650 PER 10MG) SC SCH (08:39)
[2024-09-28] MEDS: SODIUM BICARBONATE 325 MG TAB PO SCH (08:39)
[2024-09-28] MEDS: LanTUS (INSULIN GLARGINE INJ) 1 UNITS/0.01 ML SC SCH (08:40)
[2024-09-28] MEDS ORDERED: KETOCONAZOLE 2% CREAM TOP SCH (09:00)
[2024-09-28] MEDS ORDERED: PROHANCE 279.3MG/ML 5ML VIAL As Ordered ONE (11:50)
[2024-09-28 12:00] VITALS: BP 94/59
[2024-09-28] MEDS ORDERED: INSULANT SC (13:36)
[2024-09-28] MEDS ORDERED: BASA100I SC ×2 (13:38→13:45)
[2024-09-28] MEDS ORDERED: ADME100I2 SC (13:40)
[2024-09-28] MEDS ORDERED: SODI325T9 PO (13:45)
== END 2024-09-28 14:25 | disposition home or self-care (01) | DRG 420 ==
LOC: M ED 07:41 → M ED INP 12:12 → M ICU 13:10
PROVIDERS: ADMIT Internal Medicine Pulmonary Disease; ATTEND Student in an Organized Health Care Education/Training Program
DX: E10.10 Type 1 diabetes mellitus with ketoacidosis without coma (principal); E10.65 Type 1 diabetes mellitus with hyperglycemia; E03.9 Hypothyroidism, unspecified; I10 Essential (primary) hypertension; E78.5 Hyperlipidemia, unspecified; F17.290 Nicotine dependence, other tobacco product, uncomplicated; Z79.890 Hormone replacement therapy; Z79.4 Long term (current) use of insulin; Z79.899 Other long term (current) drug therapy; T38.3X6A Underdosing of insulin and oral hypoglycemic [antidiabetic] drugs, initial encounter